=== PATIENT | male | born 1965 | race Caucasian/White ===

== ENCOUNTER 2018-10-13 18:34 | Emergency (ER) | payer BC, MEDICAID ==
[~2018-10-13] VITALS: Ht 172.7 cm; Wt 74.8 kg
[2018-10-13 18:41] VITALS: BP 240/103
[2018-10-13] MEDS ORDERED: CEPH-572 PO (18:53)
== END 2018-10-13 19:06 | disposition home or self-care (01) ==
LOC: ER 18:35
DX: S01.502A Unspecified open wound of oral cavity, initial encounter (principal); J34.0 Abscess, furuncle and carbuncle of nose; J02.9 Acute pharyngitis, unspecified; I10 Essential (primary) hypertension; Z91.14 Patient's other noncompliance with medication regimen; Z79.899 Other long term (current) drug therapy; X58.XXXA Exposure to other specified factors, initial encounter; Y93.89 Activity, other specified; Y92.89 Other specified places as the place of occurrence of the external cause; Y99.8 Other external cause status
CPT/HCPCS: 99283

== ENCOUNTER 2023-10-18 14:18 | Outpatient (CLI) | payer MEDICAID | END 2023-10-18 23:59 | disposition home or self-care (01) | LOC: RAD 14:18 | PROVIDERS: ATTEND Nurse Practitioner Family | DX: K74.60 Unspecified cirrhosis of liver (principal) | CPT/HCPCS: 76700 ==

== ENCOUNTER 2024-10-21 11:04 | Inpatient (IN) | payer MEDICAID ==
[~2024-10-21] VITALS: Ht 170.2 cm; Wt 99.8 kg
[2024-10-21] VITALS (9 sets, daily range): BP systolic 128–152; BP diastolic 86–93; PULSE 72–94; RESP 16–28; TEMP 97.6–97.9; O2SAT 96–100
--- NOTE | 2024-10-21 11:17 | ELECTROCARDIOGRAPH REPORT ---
[facility] Test Date: 2024-10-21 Test Time: 11:11:42 Pat Name: KATIA BOYLE Department: EMERGENCY ROOM Room: [place] [address] Gender: M Home Care Physical Therapist: : 1965 Requested By: HARPAL JACOB Order Number: [id number] Reading MD: Dr. Yvan Pastrana Measurements Intervals [place] Rate: 93 P: 15 [place]: 178 QRS: -1 QRSD: 124 T: 136 QT: 443 QTc: 552 Interpretive Statements Sinus rhythm Multiple premature complexes, vent & supraven LVH with secondary repolarization abnormality Borderline prolonged QT interval Electronically Signed On 10-21-2024 15:47:[address] Yvan Pastrana Please click the below link to view image of tracing.
--- NOTE | 2024-10-21 11:47 | RADIOLOGY REPORT ---
EXAM: DI CHEST,SINGLE VIEW HISTORY: CP COMPARISON: None TECHNIQUE: Portable AP view of the chest was performed. FINDINGS: No no pneumothorax or consolidative infiltrates. There is mild central interstitial prominence, slig htly greater on the right.. There is blunting of the left costophrenic angle. The heart is enlarged. IMPRESSION: 1. Cardiomegaly and mild central interstitial prominence which may be due to mild CHF or reactive air ways disease. 2. Probable small left pleural effusion.
[2024-10-21 11:50] LABS: BASOPHILS # (AUTO) 0.1 X10'3 (0-0.2); EOSINOPHILS # (AUTO) 0.1 X10'3 (0-0.9); EOSINOPHILS % (AUTO) 0.6 % (0-6); HEMATOCRIT 45.9 % (42.0-52.0); HEMOGLOBIN 15.2 g/dl (14.0-17.9); LYMPHOCYTES # (AUTO) 1.8 X10'3 (1.1-4.8); LYMPHOCYTES % (AUTO) 13.7 % (21-51); MEAN CORPUSCULAR HEMOGLOBIN 29.4 PG (27.0-31.0); MEAN CORPUSCULAR HGB CONC 33.1 g/dL (33.0-36.5); MEAN CORPUSCULAR VOLUME 88.7 FL (78-98); MEAN PLATELET VOLUME 9.5 FL (7.4-10.4); MONOCYTES # (AUTO) 0.8 X10'3 (0-0.9); MONOCYTES % (AUTO) 5.9 % (2-12); NEUTROPHILS # (AUTO) 10.4 X10'3 (1.8-7.7); NEUTROPHILS % (AUTO) 78.8 % (42-75); PLATELET COUNT 211 X10'3 (140-440); RED BLOOD COUNT 5.17 X10'6 (4.70-6.10); RED CELL DISTRIBUTION WIDTH 16.4 % (11.5-14.5); WHITE BLOOD COUNT 13.2 X10'3 (4.5-11.0)
[2024-10-21 12:06] LABS: ALANINE AMINOTRANSFERASE 84 U/L (12-78); ALBUMIN 3.3 G/DL (3.4-5.0); ALKALINE PHOSPHATASE 117 IU/L (46-116); ANION GAP 11 (8-16); ASPARTATE AMINO TRANSFERASE 45 U/L (10-37); BILIRUBIN,TOTAL 0.8 MG/DL (0.1-1.0); BLOOD UREA NITROGEN 32 MG/DL (7-18); BUN/CREATININE RATIO 21.8 (10.0-20.0); CALCIUM 8.7 MG/DL (8.5-10.1); CHLORIDE 107 MMOL/L (99-107); CREATININE 1.47 MG/DL (0.60-1.10); GLUCOSE 119 MG/DL (70-104); POTASSIUM 4.1 MMOL/L (3.5-5.1); SODIUM 142 MMOL/L (135-145); TOTAL CARBON DIOXIDE 23.7 MMOL/L (24-32); TOTAL PROTEIN 6.6 G/DL (6.4-8.2); eCRCL 52 ML/MIN; eGFR 49 ML/MIN
[2024-10-21] MEDS: furosemide 40mg/4ml inj IV ONE (12:08)
[2024-10-21] MEDS: furosemide 10 MG/1 ML 10ml inj IV ONE (12:08)
[2024-10-21 12:14] LABS: PRO BRAIN NATRIURETIC PEPTIDE 13052 PG/ML (0-125)
[2024-10-21 12:18] LABS: ANISOCYTOSIS 1+; LARGE PLATELETS FEW; PLATELET ESTIMATE NORMAL
--- NOTE | 2024-10-21 12:22 | Physician Documentation ---
History of Present Illness ~ Chief Complaint: Shortness of Breath Stated Complaint: DIFF BREATHING X1 WEEK/HEART FAILURE Time Seen by MD: 11:45 Primary Medical Doctor: DIXON Source: patient Mode of Arrival: POV HPI 59-year-old male with a history of congestive heart failure and liver cirrhosis who states for the past 10 days he has been come increasingly short of breath. You complains of dyspnea on exertion and orthopnea. He denies swelling of the lower extremities. He is not complaining of chest pain. He denies cold or flu symptoms. The patient is not a very good historian in his not sure what medications he is on. He does not think he takes a water pill. Medication Reconciliation Allergies: Uncoded Allergies: PCN (Allergy, Severe, 06/05/16) Past Medical History Past Medical History: Hypertension Past Surgical History: no surgical history Drug Use: none Lives with: Spouse Lives In: Home Occupation: employed Physical Exam Vital Signs: Temperature: 97.1, Heart Rate: 55, Respiratory Rate: 27, BP: 122/102, Pulse Oximetry: 100, Weight: 93.100 Pulse Oximetry Reflects: adequate oxygenation General Appearance: alert, WD/WN EENT: normal ENT inspection Respiratory No accessory muscle use or retractions. The patient does have decreased air movement throughout with wheezes throughout and rales in the left were help with the lungs. Cardiovascular No rubs, gallops or murmurs. No peripheral edema, cyanosis or clubbing of the extremities. Skin: normal color, warm/dry Progress Results/Orders Results/Orders Orders - KOBE ZAMARRIPA [place] Hospitalist (10/21/24 13:31) Completed Orders - KOBE ZAMARRIPA Furosemide Inj (Lasix Inj) (10/21/24 11:45) Furosemide 40mg Inj (Lasix Inj) (10/21/24 11:50) Ipratropium/Albuterol Nebule (Ipratrop/A (10/21/24 12:15) Nitroglycerin Top Ointment (Nitro-Bid Ud (10/21/24 12:15) Medications Received in ER Medications (Trade) Dose Ordered Sig/Diya Route PRN Reason Start Time Stop Time Status Last Admin Dose Admin (Lasix inj) 80 mg ONCE ONCE IV 10/21/24 11:45 10/21/24 11:46 DC 10/21/24 12:08 80 MG (ipratrop/ albuterol 0.5-3(2.5) MG/3ml nebule) 3 ml ONCE ONCE NEB 10/21/24 12:15 10/21/24 12:18 DC 10/21/24 13:13 3 ML (Nitro-BID UD ointment) 1 inch ONCE ONCE TP 10/21/24 12:15 10/21/24 12:18 DC 10/21/24 12:59 1 INCH Vital Signs 10/21/24 10/21/24 10/21/24 10/21/24 11:12 11:41 13:14 13:15 Temp 97.1 Pulse 55 79 77 Resp 22 27 16 18 B/P (MAP) 122/102 168/117 (134) Pulse Ox 100 98 98 O2 Delivery Room Air* O2 Flow Rate 0 0 FiO2 21 10/21/24 13:20 Pulse 80 Resp 17 Pulse Ox 97 O2 Delivery Room Air* O2 Flow Rate 0 FiO2 21 Laboratory Tests Test 10/21/24 11:25 10/21/24 13:01 White Blood Count 13.2 H Red Blood Count 5.17 Hemoglobin 15.2 Hematocrit 45.9 Mean Corpuscular Volume 88.7 Mean Corpuscular Hemoglobin 29.4 Mean Corpuscular Hemoglobin Concent 33.1 Red Cell Distribution Width 16.4 H Platelet Count 211 Mean Platelet Volume 9.5 Neutrophils (%) (Auto) 78.8 H Lymphocytes (%) (Auto) 13.7 L Monocytes (%) (Auto) 5.9 Eosinophils (%) (Auto) 0.6 Basophils (%) (Auto) 1.0 Neutrophils # (Auto) 10.4 H Lymphocytes # (Auto) 1.8 Monocytes # (Auto) 0.8 Eosinophils # (Auto) 0.1 Basophils # (Auto) 0.1 CBC Comment Platelet Estimate Normal Large Platelets Few Red Blood Cell Morphology Perf Basophilic Stippling Anisocytosis 1+ Sodium Level 142 Potassium Level 4.1 Chloride Level 107 Carbon Dioxide Level 23.7 L Anion Gap 11 Blood Urea Nitrogen 32 H Creatinine 1.47 H Estimated GFR/1.73 m2 49 BUN/Creatinine Ratio 21.8 H Glucose Level 119 H Calcium Level 8.7 Total Bilirubin 0.8 Aspartate Amino Transf (AST/SGOT) 45 H Alanine Aminotransferase (ALT/SGPT) 84 H Alkaline Phosphatase 117 H Troponin I High Sensitivity 69 71 Pro-B-Type Natriuretic Peptide 04430 H Total Protein 6.6 Albumin 3.3 L Globulin 3.3 Albumin/Globulin Ratio 1.0 L Chemistry Comments Troponin I High Sens Percent Delta 2 Troponin I Hi Sens Absolute Change 2 EKG/XRAY/CT/US/VASC/MRI EKG : Intepreting Monitor?: No Additional Comment Twelve lead EKG was interpreted by me: Sinus rhythm rate of 93. Multiple katty ature complexes Chest X-Ray : Interpreted By: self Views: 1 VIEW Additional Comments Chest x-ray one view as interpreted by me: Cardiomegaly. Pulmonary vascular congestion. Trace left pleural effusion. Soft tissues unremarkable. Medical Decision Making Findings [place] [address] and chest x-ray shows pulmonary vascular congestion with small left pleural effusion cardiomegaly. The patient it was very tight and has rales in the lower lobes it was well as wheezes throughout. I gave the patient a DuoNeb breathing treatment, 80 mg IV of Lasix and an inch of nitro paste to increase left ventricular function however he was still quite short of breath and I believe he needs to be admitted to the hospital for further diuresis, echocardiogram and Cardiology evaluation. A page has been placed to the on-call hospitalist for admission. I spoke with the hospitalist resident and the patient will be admitted to Medicine. Additional Infomation CHF exacerbation. Pleural effusion. Fluid retention. Orthopnea. Dyspnea on exertion. Departure Disposition: ADMITTED INPATIENT Admission Level of Care: Med/Surg with Tele Impression: Primary Impression: CHF exacerbation Condition: Stable Referrals: NO PRIMARY CARE PROVIDER (PCP) Signature Scribe Signature: No scribe Attestation: The note accurately reflects work and decisions made by me.Kobe DOMINGUEZ 10/21/24 14:11 KOBE ZAMARRIPA October 21, 2024 12:21
[2024-10-21] MEDS: nitroGLYCERIN 1gm ointment UD TP ONE (12:59)
[2024-10-21] MEDS: ipratropium/albuterol 3ml nebule NEB ONE (13:13)
[2024-10-21] MEDS: PERFLUTREN PROTEIN-A MICROSPHR (Optison) 0.22 MG/ML 3ML VIAL IV ONE (14:40)
[2024-10-21] MEDS ORDERED: morphine 2 MG/ML inj. syringe IV PRN (17:35)
[2024-10-21] MEDS ORDERED: ondansetron/PF 4mg/2ml inj IV PRN (17:35)
[2024-10-21] MEDS ORDERED: magnesium Cl slow-release 64mg tablet PO PRN (17:35)
[2024-10-21] MEDS ORDERED: potassium Cl 20 mEq SR tablet PO PRN ×2 (17:35)
[2024-10-21] MEDS ORDERED: magnesium hydroxide 30ml (MOM) UD suspension PO PRN (17:35)
[2024-10-21] MEDS ORDERED: acetaminophen 325mg tablet PO PRN (17:35)
[2024-10-21] MEDS ORDERED: mag hydrox/Alum hydrox/simeth 30ml oral suspension PO PRN (17:35)
[2024-10-21] MEDS ORDERED: potassium Cl 40MEQ/1/2NS 520ml 520 ML IV PRN (17:35)
[2024-10-21] MEDS ORDERED: magnesium sulf-water 4G/100mL 100 ML IV PRN (17:35)
[2024-10-21] MEDS ORDERED: magnesium sulf-water 2g/50mL 50 ML IV PRN (17:35)
--- NOTE | 2024-10-21 17:52 | HISTORY AND PHYSICAL-Residence ---
History & Physical Providers to CC Resident Creating Document: MONIKA CASTILLO, RES CC: YEMI BRISENO MD ~ History of Present Illness Primary Medical Doctor: [facility] Reason for Admit\Complaint: Shortness of breaths since 10 days History of Present Illness 59-year-old male with past medical history of HTN, heart failure with reduced ejection fraction presented to the ED with gradual worsening of shortness of breaths over a period of 10 days. Patient describes that there was mild discomfort 10 days ago that worsened to the point that this shortness of breath even at rest. Patient endorses orthopnea, chest discomfort and paroxysmal nocturnal dyspnea. Patient denies fever, cough, palpitations, swelling of feet or decreased urine output. Patient endorses similar episodes in the past when he was treated for heart failure with reduced ejection fraction. Patient states that he ran out of medications and the prescription was not filled and therefore has not been able to take his meds. Allergies: Uncoded Allergies: PCN (Allergy, Severe, 06/05/16) Home Medications Home Medications Active Past Medical History Past Medical History Heart failure with reduced ejection fraction Hypertension Hyperlipidemia Does not know if he has a diagnosis of liver cirrhosis Past Surgical History Surgical History Comment ACL repair (right) Past Social History Social History Comment Lives at home with mother and ex- Employed as [employer] worker Goes to [facility] for primary care and sees box strapper on [address] Occasional consumption of about five beers at parties Used to smoke half pack of cigarettes for 20 years came down to 2-3 per day for the last four years Smokes marijuana Does not consume any other illicit drugs Drug Use: None Lives with: Spouse Lives In: Home Occupation: employed ROS ROS All other systems reviewed in full and negative except for the pertinent positives mentioned in the HPI Exam Vitals: Vital Signs Date Time Temp Pulse Resp B/P (MAP) Pulse Ox O2 Delivery O2 Flow Rate FiO2 10/21/24 16:06 79 10/21/24 14:22 17 145/98 (114) 100 2.0 10/21/24 13:20 Room Air* 21 10/21/24 11:12 97.1 General: General: Moderately obese man, Alert, awake, oriented,in acute distress HEENT: PERRLA, no icterus, pallor, lymphadenopathy, carotid bruit Respiratory system: Bilateral vesicular breath sounds heard, expiratory wheeze heard in bilateral lung regions, bilateral basal Creps heard CVS: S1-S2 heard, 3/6 holosystolic murmur present in the mitral and tricuspid area GI: Soft, nontender, no organomegaly, no guarding/rigidity, bowel sounds present Neuro: No focal neurological deficits present Extremities: 1+ pitting edema present bilaterally, No cyanosis clubbing Musculoskeletal: No deformities Skin: Warm and dry Mood: Anxious Diagnostic Data Last Recorded Lab Results: 10/21/24 1125 10/21/24 1125 Advance Care Planning Advanced Care plannin - 30 Minutes (I spent 20 minutes discussing various resuscitative measures the patient decided to be full code) Additional Plan Assessment: A 50-year-old male with past medical history of heart failure with reduced ejection fraction presented to the ED with gradual worsening of shortness of breaths over a period of 10 days. Patient was admitted for the management and evaluation of acute exacerbation of heart failure with reduced ejection fraction, possible underlying undiagnosed COPD and possible obstructive sleep apnea. Plan: Acute respiratory distress 2/2 acute on chronic exacerbation of HFrEF, EF: 30% Cor pulmonale Possible underlying undiagnosed COPD Possible obstructive sleep apnea Mild leukocytosis with left shift Chest x-ray: Cardiomegaly and mild central interstitial prominence which may be due to mild CHF or reactive airways disease. Probable small left pleural effusion. Echo: LV is mildly dilated with mild concentric hypertrophy. Overall systolic function appears severely reduced with no evidence of thrombus visualized. Global hypokinesis. LVEF is 30%.RV appears mildly dilated with normal contractility. RVSP is estimated at 56 mmHG. EKG: Sinus rhythm, RBBB with left axis deviation. Elevated pro BN Optimization with GDM T: Losartan 50 mg, metoprolol succinate 25 mg, Aldactone 25 mg, Jardiance 10 mg IV Lasix 40 mg b.i.d. IV ceftriaxone 1 g (day one), IV azithromycin 500 mg (day one), IV methylprednisolone 60 mg b.i.d. DuoNeb q.4h scheduled, q.2h p.r.n. Follow up with D-dimer CPAP daily at night Daily weights, strict Is&Os Heart healthy diet Severe mitral regurgitation Echo: MV is thickened with mild annular thickening and no stenosis. Severe mitral regurgitation with flow reversal in pulmonary vein. Patient might benefit from Cardiology consult and discussion about valve replacement. Prerenal JERMAN probably secondary to renal tubular stasis Most likely cardiorenal Elevated BUN and creatinine Continue to monitor BMP Follow up with urine lytes and FENa Hypertension Continue losartan 50 mg once daily We will continue to monitor vitals Hyperlipidemia Follow up with lipid panel Continue Lipitor 40 mg once daily Unclear diagnosis of liver cirrhosis Elevated liver enzymes Follow up with ultrasound abdomen Code status: Full code Diet: Heart healthy, sodium restricted DVT prophylaxis: Heparin Disposition: Admit to PCU, strict Is&Os, monitor for any respiratory distress, follow up with D-dimer and if elevated recommend CT angiography Monika Castillo MD Internal Medicine, PGY 1 Date of Service: October 21, 2024 Billing Provider: YEMI BRISENO MD,MONIKA, RES October 21, 2024 17:52
[2024-10-21] MEDS ORDERED: SPIR25TA5 PO (17:57)
[2024-10-21] MEDS ORDERED: LOSA25TA41 PO (17:57)
[2024-10-21] MEDS ORDERED: FURO40TA4 PO (17:57)
[2024-10-21] MEDS ORDERED: METO-384 PO (17:57)
[2024-10-21] MEDS ORDERED: ipratropium/albuterol 3ml nebule NEB PRN (18:00)
--- NOTE | 2024-10-21 18:01 | CARDIOLOGY REPORT ---
APPROVED REPORT EXAM: Comprehensive 2D, Doppler, and color-flow Echocardiogram. Patient Location: [facility] Blood Pressure: 145/98 mmHg Heart Rate: 80-100 bpm Rhythm: Sinus with frequent ectopy Indications CHF SOB Hypertension Pro BNP 36862 Dandy Operator unknown No previous echo 2D Dimensions LA Diam5.8 cm IVSd 1.3 (0.7-1.1cm) LVDd 6.0 cm PWd 1.3 (0.7-1.1cm) IVSs 1.5 (0.8-1.2cm) LVDs 5.3 (2.5-4.0cm) Aortic Root(2D) 3.2 cm PWs 1.5 (0.8-1.2cm) LVOT Diameter 2.05 (1.8-2.4cm) LVEF(%) 23.6 (>50%) Ao Asc Diam.3.37 cmIVC 19.76 mm FS (%) 11.1 % SV 42.1 ml CO 4.0 L/min M-Mode Dimensions MV EPSS 1.9 (<0.5cm) Aortic Valve AoV Peak Osmin. 145.8 cm/s AoV VTI 21.2 cm AO Peak GR. 8.5 mmHg AO Mean GR. 5 mmHg LVOT VTI 25.30 cm LVOT Peak Osmin. 149.7 cm/s MONSE(VTI)/BSA 3.96 cm2/m2 MONSE (VTI) 3.96 cm2 Mitral Valve MV E Velocity 160.2 cm/s MV Peak Gr. 14 mmHg MV DECEL TIME 128 ms MV PHT 48 ms MVA (PHT) 4.58 cm2 MR SEnc154.6 cm/s MV WJfn007.0 cm/sMR PG Brk123.5 mmHg Tricuspid Valve TR P. Velocity 339 cm/s RAP ESTIMATE 10 mmHg TR Peak Gr. 46 mmHg RVSP 56 mmHg LEFT VENTRICLE LV is mildly dilated with mild concentric hypertrophy. Overall systolic function appears severely red uced with no evidence of thrombus visualized. Global hypokinesis. LVEF is 30%. RIGHT VENTRICLE RV appears mildly dilated with normal contractility. RVSP is estimated at 56 mmHG. ATRIA Left atrium is severely dilated. AORTIC VALVE Trileaflet AV appears sclerotic without stenosis. No insufficiency. MITRAL VALVE MV is thickened with mild annular thickening and no stenosis. Severe mitral regurgitation with flow r eversal in pulmonary vein. TRICUSPID VALVE The tricuspid valve is normal in structure. Mild tricuspid regurgitation PULMONIC VALVE The pulmonary valve is normal in structure. Trace pulmonic regurgitation. GREAT VESSELS The aortic root is normal in size. The ascending aorta is normal in size. The IVC is normal in size a nd collapses >50% with inspiration. PERICARDIUM There is no pericardial effusion. Other Information Study Quality: Adequate
[2024-10-21 18:11] LABS: HEMOGLOBIN A1C 5.9 % (4.5-6.2)
[2024-10-21 19:43] LABS: POTASSIUM 4.3 MMOL/L (3.5-5.1); eCRCL 45 ML/MIN; eGFR 41 ML/MIN
[2024-10-21 19:45] LABS: D-DIMER 2.21 MG/L FEU (0-0.50)
[2024-10-21 19:50] LABS: OSMOLALITY 300 MOSM/K (280-300)
[2024-10-21] MEDS: K and/or MAG REPLACEMENT MC SCH (20:00)
[2024-10-21] MEDS ORDERED: methylPREDNISolone sod succ 125mg/2ml vial IV SCH (20:00)
[2024-10-21] MEDS: docusate sod 100mg capsule PO SCH (20:00)
[2024-10-21] MEDS: EMPAGLIFLOZIN 10 MG TABLET PO SCH (20:03)
[2024-10-21] MEDS: metoprolol succinate 25mg (24-HOUR) SR. Tablet PO SCH (20:03)
[2024-10-21] MEDS: losartan 25mg tablet PO SCH (20:03)
[2024-10-21] MEDS: methylPREDNISolone sod succ/PF 40mg inj. IV SCH (20:05)
[2024-10-21] MEDS: atorvastatin 20mg tablet PO SCH (20:05)
[2024-10-21] MEDS: LORazepam 1 MG tablet PO PRN (20:06)
[2024-10-21] MEDS: heparin, porcine 5000 units/ml vial SQ SCH (20:18)
[2024-10-21] MEDS: ipratropium/albuterol 3ml nebule NEB SCH (20:24)
[2024-10-21] MEDS: furosemide 40mg/4ml inj IV SCH (22:53)
[2024-10-21 23:11] LABS: BILIRUBIN,URINE NEGATIVE (Neg); CLARITY,URINE CLEAR (Clear); COLOR,URINE YELLOW (Yellow); GLUCOSE, URINE >=1000 mg/dl (Neg); KETONES,URINE NEGATIVE (Neg); LEUKOCYTE ESTERASE ,URINE NEGATIVE (Neg); NITRITES, URINE NEGATIVE (Neg); OCCULT BLOOD,URINE NEGATIVE (Neg); PROTEIN,URINE 30 mg/dl (Neg); UROBILINOGEN,URINE 0.2 E.U/dL (0.2-1.0)
[2024-10-21 23:15] LABS: UA COLLECTION TYPE CLN CATCH MIDSTREAM
[2024-10-21 23:17] LABS: BACTERIA,URINE NONE SEEN /HPF (Neg); RBC,URINE NONE SEEN /HPF (0-2); SQUAMOUS EPITHELIAL CELL,UR NONE SEEN /LPF (FEW); WBC,URINE NONE SEEN /HPF (0-4)
[2024-10-22] VITALS (16 sets, daily range): BP systolic 110–159; BP diastolic 64–98; PULSE 40–106; RESP 16–26; TEMP 97.2–97.9; O2SAT 91–99
[2024-10-22 05:35] LABS: BASOPHILS % (AUTO) 0.3 % (0-1); EOSINOPHILS % (AUTO) 0.1 % (0-6); HEMATOCRIT 48.7 % (42.0-52.0); HEMOGLOBIN 16.3 g/dl (14.0-17.9); LYMPHOCYTES # (AUTO) 0.7 X10'3 (1.1-4.8); LYMPHOCYTES % (AUTO) 10.3 % (21-51); MEAN CORPUSCULAR HEMOGLOBIN 29.4 PG (27.0-31.0); MEAN CORPUSCULAR HGB CONC 33.4 g/dL (33.0-36.5); MEAN PLATELET VOLUME 9.6 FL (7.4-10.4); MONOCYTES # (AUTO) 0.1 X10'3 (0-0.9); MONOCYTES % (AUTO) 1.2 % (2-12); NEUTROPHILS # (AUTO) 6.3 X10'3 (1.8-7.7); NEUTROPHILS % (AUTO) 88.1 % (42-75); PLATELET COUNT 224 X10'3 (140-440); RED BLOOD COUNT 5.53 X10'6 (4.70-6.10); RED CELL DISTRIBUTION WIDTH 16.1 % (11.5-14.5); WHITE BLOOD COUNT 7.2 X10'3 (4.5-11.0)
[2024-10-22 05:56] LABS: ALBUMIN 3.5 G/DL (3.4-5.0); ANION GAP 10 (8-16); BLOOD UREA NITROGEN 30 MG/DL (7-18); BUN/CREATININE RATIO 18.2 (10.0-20.0); CALCIUM 9.3 MG/DL (8.5-10.1); CHLORIDE 106 MMOL/L (99-107); CHOLESTEROL 174 MG/DL (0-200); CREATININE 1.65 MG/DL (0.60-1.10); GLUCOSE 143 MG/DL (70-104); HDL CHOLESTEROL 43 MG/DL (35-60); LDL CHOLESTEROL 119 MG/DL (50-100); MAGNESIUM 2.4 MG/DL (1.5-2.4); POTASSIUM 3.9 MMOL/L (3.5-5.1); PRO BRAIN NATRIURETIC PEPTIDE 8343 PG/ML (0-125); SODIUM 144 MMOL/L (135-145); TOTAL CARBON DIOXIDE 28.1 MMOL/L (24-32); TRIGLYCERIDES 56 MG/DL (20-135); eCRCL 47 ML/MIN; eGFR 43 ML/MIN
[2024-10-22] MEDS ORDERED: spironolactone 25 MG tablet PO SCH (08:00)
[2024-10-22] MEDS: CefTRIAXone/D5W-Rocephin 1gm 50 ML IV SCH (08:27)
[2024-10-22] MEDS: losartan 25mg tablet PO SCH (08:38)
[2024-10-22] MEDS: furosemide 40mg/4ml inj IV SCH (08:40)
[2024-10-22] MEDS ORDERED: iohexol 350MG/ML 100ml bottle IV ONE (08:58)
[2024-10-22] MEDS: azithromycin/NS 500mg/250ml 250 ML IV SCH (09:10)
--- NOTE | 2024-10-22 11:28 | RADIOLOGY REPORT ---
CTA Chest with intravenous contrast INDICATION: elevated D dimer COMPARISON: None TECHNIQUE: Multidetector spiral CTA of the chest was performed of the chest with intravenous contrast . PULMONARY ANGIOGRAPHY PROTOCOL was utilized using a bolus-tracking technique centered on the main p ulmonary artery. Axial, coronal and sagittal multiplanar and MIP reformats were performed. CONTRAST: Type of contrast: Omni 350 Contrast injected: 100 ml Radiation dose : Chest: CTDI volume is 31 mGy. Dose-length product is 953 mGy*cm The dose indicators for CT are the volume computed Tomography (CT) dose Index (CTDIvol) and the dose Length product (DLP), and are measured in units of mGy and mGy-cm, respectively. These indicators are not patient dose, but values generated from the CT scanner acquisition factors. The report includes radiation exposure data for exposures received during this examination. Findings: Pulmonary artery: No pulmonary embolism Lower neck: Normal thyroid. Lungs: Bibasilar atelectasis and consolidation. Emphysematous changes in both lungs. Heart/Vascular Structures: [id number] cardiomegaly. No pericardial effusion. Lymph Nodes: Subcentimeter mediastinal and hilar lymph nodes. Pleura: Small right and trace left pleural effusions. Musculoskeletal: No acute osseous abnormality. Soft tissues: Normal. Upper abdomen: Punctate left renal calculus. IMPRESSION: 1. No pulmonary embolism. 2. Small right and trace left pleural effusions with associated bibasilar atelectasis and consolidati on. Subcentimeter mediastinal and hilar lymph nodes. Clinical correlation and continued follow-up is recommended. HS:Y
[2024-10-22] MEDS: nicotine 21mg patch - 24 hr TD ONE (12:21)
[2024-10-22] MEDS ORDERED: EMPA10TA PO (14:44)
[2024-10-22] MEDS ORDERED: ATOR40TA PO (14:44)
--- NOTE | 2024-10-22 16:26 | RADIOLOGY REPORT ---
INDICATION: Liver cirrhosis TECHNIQUE: Multiple real-time sonographic images were obtained of the right upper quadrant. COMPARISON: US ULTRASOUND OF ABDOMEN on DOS: 10/18/23 FINDINGS: The liver demonstrates diffusely echogenic echotexture without focal mass lesions. The live r measures 14.9 cm. Normal hepatopetal portal flow appreciated. No evidence of pleural effusion or ab dominal ascites. There is no intrahepatic or extrahepatic ductal dilatation. The common duct measures 0.3 cm. The gallbladder is without evidence of stone or sludge. The gallbladder wall measures 0.2 cm and is w ithin normal limits. Negative sonographic Navarrete's sign. The right kidney measures 11.6 cm. The right kidney is normal in contour, size, and shape. The echoge nicity is normal. There is no hydronephrosis. The pancreas is not well visualized due to overlying bowel gas. IMPRESSION: 1. Hepatic steatosis. Otherwise, unremarkable right upper quadrant sonogram.
--- NOTE | 2024-10-22 19:43 | PROGRESS NOTE ---
Daily Progress Note Providers to CC ~ Antibiotic Timeout Antibiotic Ordered?: Yes Subjective The patient is a lot less short of breath- LVEF is 30% on echo- I did speak at length about smoking cessation with the patient Objective Vital Signs Date Time Temp Pulse Resp B/P (MAP) Pulse Ox O2 Delivery O2 Flow Rate FiO2 10/22/24 15:14 42 16 Room Air 0.0 21 10/22/24 15:13 98 10/22/24 15:00 97.4 148/82 (104) Result Diagram: 10/22/24 0506 10/22/24 0506 Gen. No acute distress alert and oriented 4 Lungs clear to ascultation bilaterally, no wheezes rales or rhonchi appreciated Heart normal sinus rhythm no murmurs rubs or clicks noted Abdomen soft nontender bowel sounds are normoactive Lower extremities no clubbing cyanosis, nor edema appreciated bilaterally Coagulation Studies Laboratory Tests Test 10/21/24 19:24 D-Dimer 2.21 MG/L FEU (0-0.50) H D-Dimer Comment Problem\Assessment\Plan Problems/Diagnosis: (1) CHF exacerbation # acute exacerbation of chronic HFrEF- LVEF is 30% on echocardiogram On losartan, Aldactone Jardiance and IV Lasix # COPD possible acute exacerbation Scheduled was DuoNeb IV Rocephin IV Solu-Medrol # severe mitral valve regurgitation- Consider outpatient mitral valve replacement # steatosis of the liver- Abdominal ultrasound two years ago demonstrated cirrhosis of the liver however current ultrasound demonstrates steatosis and no theresa cirrhosis. # hyperlipidemia continue atorvastatin # JERMAN- Possibly present on admission Continue monitor daily CMP Renal function is worsening with diuresis however has stabilized # DVT prophylaxis- SQ heparin Date of Service: October 22, 2024 Billing Provider: SYLWIA GUNDERSON DO Common Visit Codes: [id number] INP/OBS CARE(HIGH) SYLWIA GUNDERSON DO October 22, 2024 19:43
[2024-10-23 02:00] VITALS: BP 107/77; PULSE 83; RESP 21; TEMP 97.8; O2SAT 98
[2024-10-23 07:05] LABS: EOSINOPHILS % (AUTO) 0 % (0-6); HEMATOCRIT 48.1 % (42.0-52.0); MEAN CORPUSCULAR HEMOGLOBIN 29.2 PG (27.0-31.0); MEAN CORPUSCULAR HGB CONC 33.3 g/dL (33.0-36.5); NEUTROPHILS # (AUTO) 14.6 X10'3 (1.8-7.7); WHITE BLOOD COUNT 16.2 X10'3 (4.5-11.0)
[2024-10-23 07:07] LABS: BASOPHILS % (AUTO) 0.3 % (0-1); LYMPHOCYTES % (AUTO) 6.2 % (21-51); MEAN CORPUSCULAR VOLUME 87.7 FL (78-98); MEAN PLATELET VOLUME 9.9 FL (7.4-10.4); MONOCYTES # (AUTO) 0.5 X10'3 (0-0.9); MONOCYTES % (AUTO) 3.4 % (2-12); NEUTROPHILS % (AUTO) 90.1 % (42-75); PLATELET COUNT 235 X10'3 (140-440); RED BLOOD COUNT 5.48 X10'6 (4.70-6.10)
[2024-10-23 07:15] VITALS: BP 127/81; PULSE 81; RESP 24; TEMP 97.1; O2SAT 93
[2024-10-23 07:50] LABS: ALBUMIN 3.2 G/DL (3.4-5.0); ANION GAP 14 (8-16); BLOOD UREA NITROGEN 39 MG/DL (7-18); BUN/CREATININE RATIO 22.3 (10.0-20.0); CALCIUM 9.1 MG/DL (8.5-10.1); CHLORIDE 105 MMOL/L (99-107); CREATININE 1.75 MG/DL (0.60-1.10); GLUCOSE 150 MG/DL (70-104); MAGNESIUM 2.6 MG/DL (1.5-2.4); POTASSIUM 4.4 MMOL/L (3.5-5.1); PRO BRAIN NATRIURETIC PEPTIDE 5217 PG/ML (0-125); SODIUM 142 MMOL/L (135-145); TOTAL CARBON DIOXIDE 23.5 MMOL/L (24-32); eCRCL 42 ML/MIN; eGFR 40 ML/MIN
[2024-10-23] MEDS: nicotine 21mg patch - 24 hr TD SCH (08:00)
[2024-10-23] MEDS ORDERED: spironolactone 25 MG tablet PO SCH (08:00)
[2024-10-23 08:03] VITALS: PULSE 88; RESP 18; O2SAT 98
[2024-10-23 08:10] VITALS: PULSE 80; RESP 18
[2024-10-23] MEDS: metoprolol succinate 25mg (24-HOUR) SR. Tablet PO SCH (08:42)
[2024-10-23] MEDS: HYDROcodone/acetaminophen 5mg/325mg tablet PO PRN (10:26)
[2024-10-23] MEDS ORDERED: ATOR40TA72 PO (10:50)
[2024-10-23] MEDS ORDERED: NICO-687 TD (10:50)
[2024-10-23] MEDS ORDERED: CEFD300C3 PO (10:50)
[2024-10-23] MEDS ORDERED: PRED20TA PO (10:50)
[2024-10-23] MEDS ORDERED: IPRA4AER IH (10:50)
[2024-10-23] MEDS ORDERED: EMPA10TA PO (10:50)
[2024-10-23 13:10] VITALS: BP 110/56; PULSE 52; RESP 16; TEMP 97.4; O2SAT 96
--- NOTE | 2024-10-23 18:03 | DISCHARGE SUMMARY ---
Discharge Summary Providers to CC ~ Discharge Summary Admission Diagnosis: Acute HYpoxemic resp failure, Acute on CHF, Liver Cirrhosis Hospital Course DATE OF ADMISSION: 10/21/2024 DATE OF DISCHARGE: 10/23/2024 Discharge Diagnosis\\Comment: Acute exacerbation of chronic HFrEF, acute COPD, severe mitral valve regurgitation, steatosis of the liver, hyperlipidemia, JERMAN with worsening renal function due to diuresis, severe mitral valve regurgitation Operations\\Procedures: None Consultants: None Complications: None Condition on DC: Stable New Medications: Cefdinir* (Cefdinir*) 300 Mg Capsule 1 CAP PO Q12H, #6 CAP Ipratropium/Albuterol Sulfate (Combivent Respimat Inhal [place]) 20 Mcg-100 Mcg/Actuation Aer.w.adap 2 PUFFS IH Q4H PRN for SOB or wheezing, #1 INH Prednisone* (Prednisone*) 20 Mg Tablet 2 TAB PO DAILY, #9 TAB Take two tablets daily x3 days and then one tablet daily x3 days Atorvastatin Calcium (Atorvastatin Calcium) 40 Mg Tablet 1 TAB PO DAILY for 30 Days, #30 TAB 0 Refills Empagliflozin (Jardiance) 10 Mg Tablet 10 MG PO DAILY, #30 TAB Nicotine 21 MG Patch* (Habitrol 21 MG Patch*) 1 Each Patch.td24 1 PATCH TD DAILY, #30 PATCH Do not smoke while on a nicotine patch as this could cause your blood pressure to markedly elevate and you could have a stroke. Continued Medications: Furosemide (Furosemide) 40 Mg Tablet 1 TAB PO DAILY Losartan Potassium (Losartan Potassium) 25 Mg Tablet 1 TAB PO DAILY Metoprolol Succinate (Metoprolol Succinate) 50 Mg Tab.sr.24h 1 TAB PO DAILY Spironolactone (Spironolactone) 25 Mg Tablet 1 TAB PO DAILY Discharge Summary: The patient was admitted by resident physician MONIKA Whiteside, under the supervision of FELICIANO LINARES with the following HPI:"59-year-old male with past medical history of HTN, heart failure with reduced ejection fraction presented to the ED with gradual worsening of shortness of breaths over a period of 10 days. Patient describes that there was mild discomfort 10 days ago that worsened to the point that this shortness of breath even at rest. Patient endorses orthopnea, chest discomfort and paroxysmal nocturnal dyspnea. Patient denies fever, cough, palpitations, swelling of feet or decreased urine output. Patient endorses similar episodes in the past when he was treated for heart failure with reduced ejection fraction. Patient states that he ran out of medications and the prescription was not filled and therefore has not been able to take his meds." The patient is breathing improved significantly with diuresis with Lasix on board the patient also has a COPD which is acutely diagnose and the patient received IV Solu-Medol and nebulizer treatments. The patient had an echocardiogram which demonstrated mildly dilated mild concentric hypertrophy as well as heart failure with an LVEF of 30% The patient also has severe mitral valve regurgitation and I did inform the pa emily of this fact which may improve with diuresis. The patient also was treated with IV azithromycin and IV Rocephin and and di scharged with a script for cefdinir 300 mg one cap q.12 hours x3 days the patient also received a tapering dose of prednisone 40 mg for three days and then 20 mg for three days. The patient was started on Jardiance and remains on losartan and metoprolol and spironolactone the patient is to continue Lasix 40 mg daily and get a metabolic panel in two weeks to monitor his kidney function the patient was admitted with a JERMAN with a creatinine 1.47 however his kidney function did worsen during hospitalization with diuresis on day discharge his creatinine was 1.75. The patient does have underlining chronic kidney disease. The patient has a history of steatosis of the liver initially two years ago an ultrasound was obtained which was read as cirrhosis however current ultrasound ruled out cirrhosis. Gen. No acute distress alert and oriented 4 Lungs clear to ascultation bilaterally, no wheezes rales or rhonchi appreciated Heart normal sinus rhythm no murmurs rubs or clicks noted Abdomen soft nontender bowel sounds are normoactive Lower extremities no clubbing cyanosis, nor edema appreciated bilaterally The patient felt ready to be discharged and was medically cleared to be discharged on 10/23/2024 The patient was seen and evaluated on day of discharge. Time spent on discharge 40 minutes *Problems/Diagnosis: (1) CHF exacerbation Status: Acute Total Time Spent on D/C: > 30 Minutes Date of Service: October 23, 2024 Billing Provider: SYLWIA GUNDERSON DO Common Visit Codes: [id number] DISCH DAY >30min SYLWIA GUNDERSON DO October 23, 2024 17:55
== END 2024-10-23 13:33 | disposition home or self-care (01) | DRG 194 ==
LOC: ER 11:05 → ED HOLD 14:10 → PCU 3S 15:41
PROVIDERS: ADMIT Family Medicine; ATTEND Family Medicine
PROC: B32T1ZZ Computerized Tomography (CT Scan) of Left Pulmonary Artery using Low Osmolar Contrast (ICD-10-PCS; principal; 2024-10-22)
PROC: B3201ZZ Computerized Tomography (CT Scan) of Thoracic Aorta using Low Osmolar Contrast (ICD-10-PCS; 2024-10-22)
PROC: B32S1ZZ Computerized Tomography (CT Scan) of Right Pulmonary Artery using Low Osmolar Contrast (ICD-10-PCS; 2024-10-22)
DX: I13.0 Hypertensive heart and chronic kidney disease with heart failure and stage 1 through stage 4 chronic kidney disease, or unspecified chronic kidney disease (principal); J96.01 Acute respiratory failure with hypoxia; N17.9 Acute kidney failure, unspecified; K74.60 Unspecified cirrhosis of liver; I50.23 Acute on chronic systolic (congestive) heart failure; J44.9 Chronic obstructive pulmonary disease, unspecified; N18.9 Chronic kidney disease, unspecified; I34.0 Nonrheumatic mitral (valve) insufficiency; Z88.0 Allergy status to penicillin
CPT/HCPCS: 36415; 71045; 71275; 76700; 80048; 80053; 80061; 81001; 82565; 82570; 83036; 83735; 83880; 83930; 83935; 84132; 84300; 84484; 85008; 85025; 85379; 87081; 93005; 93306; 94640; 94760; 96374; 96375; 99285; A4615; A6258; G0378; J0456; J0696; J1644; J1938; J1940; J2919; Q9967

== ENCOUNTER 2024-10-27 10:23 | Inpatient (IN) | payer MEDICAID ==
[~2024-10-27] VITALS: Ht 172.7 cm; Wt 91.5 kg
[~2024-10-27 10:23] MED LIST: ATOR40TA72 PO; CEFD300C3 PO; EMPA10TA PO; FURO40TA4 PO; IPRA4AER IH; LOSA25TA41 PO; METO-384 PO; NICO-687 TD; PRED20TA PO; SPIR25TA5 PO
--- NOTE | 2024-10-27 10:48 | ELECTROCARDIOGRAPH REPORT ---
[facility] Test Date: 2024-10-27 Test Time: 10:29:41 Pat Name: KATIA BOYLE Department: EMERGENCY ROOM Room: Gender: M General Internal Medicine Physician: NELSON : 1965 Requested By: DEPARTMENT EMERGENCY Order Number: [id number] Reading MD: Measurements Intervals [place] Rate: 95 P: 56 [place]: 171 QRS: 76 QRSD: 126 T: 75 QT: 394 QTc: 496 Interpretive Statements Sinus rhythm Ventricular bigeminy Consider left atrial enlargement Nonspecific intraventricular conduction delay Nonspecific T abnormalities, lateral leads Baseline wander in lead(s) V1 Please click the below link to view image of tracing.
[2024-10-27 11:05] LABS: BASOPHILS # (AUTO) 0.1 X10'3 (0-0.2); HEMOGLOBIN 15.4 g/dl (14.0-17.9); MEAN PLATELET VOLUME 9.6 FL (7.4-10.4); MONOCYTES # (AUTO) 0.9 X10'3 (0-0.9); MONOCYTES % (AUTO) 7.5 % (2-12); NEUTROPHILS # (AUTO) 7.9 X10'3 (1.8-7.7)
[2024-10-27 11:07] LABS: BASOPHILS % (AUTO) 0.8 % (0-1); EOSINOPHILS # (AUTO) 0.3 X10'3 (0-0.9); EOSINOPHILS % (AUTO) 2.3 % (0-6); HEMATOCRIT 47.3 % (42.0-52.0); LYMPHOCYTES # (AUTO) 2.3 X10'3 (1.1-4.8); LYMPHOCYTES % (AUTO) 20.3 % (21-51); MEAN CORPUSCULAR HEMOGLOBIN 29.3 PG (27.0-31.0); MEAN CORPUSCULAR HGB CONC 32.6 g/dL (33.0-36.5); MEAN CORPUSCULAR VOLUME 89.8 FL (78-98); NEUTROPHILS % (AUTO) 69.1 % (42-75); PLATELET COUNT 243 X10'3 (140-440); RED BLOOD COUNT 5.27 X10'6 (4.70-6.10); RED CELL DISTRIBUTION WIDTH 16.7 % (11.5-14.5); WHITE BLOOD COUNT 11.4 X10'3 (4.5-11.0)
[2024-10-27 11:27] LABS: ALANINE AMINOTRANSFERASE 113 U/L (12-78); ALBUMIN/GLOBULIN RATIO 0.8 (1.1-1.5); ALKALINE PHOSPHATASE 122 IU/L (46-116); ANION GAP 6 (8-16); ASPARTATE AMINO TRANSFERASE 55 U/L (10-37); BLOOD UREA NITROGEN 31 MG/DL (7-18); BUN/CREATININE RATIO 17.7 (10.0-20.0); CALCIUM 8.5 MG/DL (8.5-10.1); CHLORIDE 106 MMOL/L (99-107); CREATININE 1.75 MG/DL (0.60-1.10); GLUCOSE 116 MG/DL (70-104); POTASSIUM 4.9 MMOL/L (3.5-5.1); SODIUM 138 MMOL/L (135-145); TOTAL CARBON DIOXIDE 26.2 MMOL/L (24-32); TOTAL PROTEIN 6.8 G/DL (6.4-8.2); eCRCL 44 ML/MIN; eGFR 40 ML/MIN
--- NOTE | 2024-10-27 11:31 | RADIOLOGY REPORT ---
CHEST RADIOGRAPH Indication: CP Technique: Single frontal view of the chest was obtained Comparison: DI CHEST,SINGLE VIEW on DOS: 10/21/24 FINDINGS: The cardiac silhouette is enlarged. The lungs demonstrate patchy airspace opacities. The pulmonary va sculature is prominent. Small left pleural effusion. There is no pneumothorax. IMPRESSION: 1. Cardiomegaly with pulmonary vascular congestion and bilateral patchy airspace opacities. 2. Small left pleural effusion
[2024-10-27 11:35] LABS: ANISOCYTOSIS 1+; GIANT PLATELET FEW; LARGE PLATELETS FEW; PLATELET ESTIMATE NORMAL
[2024-10-27 11:38] LABS: PRO BRAIN NATRIURETIC PEPTIDE 17286 PG/ML (0-125)
[2024-10-27] MEDS: CefTRIAXone 2gm/D5W 50ml BAG 50 ML IV ONE (11:51)
[2024-10-27] MEDS: aspirin 81mg, enteric-coated 1 TAB TABLET.DR PO ONE (13:06)
[2024-10-27] MEDS ORDERED: mag hydrox/Alum hydrox/simeth 30ml oral suspension PO PRN (13:20)
[2024-10-27] MEDS ORDERED: magnesium sulf-water 2g/50mL 50 ML IV PRN (13:20)
[2024-10-27] MEDS ORDERED: potassium Cl 20 mEq SR tablet PO PRN (13:20)
[2024-10-27] MEDS ORDERED: potassium Cl 40MEQ/1/2NS 520ml 520 ML IV PRN (13:20)
[2024-10-27] MEDS ORDERED: magnesium hydroxide 30ml (MOM) UD suspension PO PRN (13:20)
[2024-10-27] MEDS ORDERED: magnesium sulf-water 4G/100mL 100 ML IV PRN (13:20)
[2024-10-27] MEDS ORDERED: magnesium Cl slow-release 64mg tablet PO PRN (13:20)
[2024-10-27] MEDS ORDERED: acetaminophen 325mg tablet PO PRN ×2 (13:20)
[2024-10-27] MEDS ORDERED: ondansetron/PF 4mg/2ml inj IV PRN (13:20)
[2024-10-27] MEDS ORDERED: iohexol 350MG/ML 100ml bottle IV ONE ×2 (13:20→17:54)
[2024-10-27 13:50] LABS: APTT 29 SECONDS (22-32); D-DIMER 1.91 MG/L FEU (0-0.50); INR 1.1 INR; PROTHROMBIN TIME 10.8 SECONDS (9.0-12.0)
[2024-10-27] MEDS: metoprolol succinate 25mg (24-HOUR) SR. Tablet PO SCH (14:00)
[2024-10-27] MEDS: atorvastatin 20mg tablet PO SCH ×2 (14:00→21:51)
--- NOTE | 2024-10-27 14:09 | ELECTROCARDIOGRAPH REPORT ---
[facility] Test Date: 2024-10-27 Test Time: 14:07:13 Pat Name: KATIA BOYLE Department: EMERGENCY ROOM Room: ED 1 1 Gender: M Skoog Operator: MIKAELA : 1965 Requested By: YAMILETH SEVILLA Order Number: [id number] Reading MD: Measurements Intervals [place] Rate: 78 P: 17 IN: 176 QRS: 5 QRSD: 123 T: 104 QT: 422 QTc: 481 Interpretive Statements Sinus rhythm Nonspecific intraventricular conduction delay Borderline repolarization abnormality Please click the below link to view image of tracing.
[2024-10-27] MEDS: MESSAGE TO NURSING IV ONE ×2 (14:12→21:13)
[2024-10-27] MEDS: heparin 10,000 units/1 ML INJ IV ONE (14:14)
[2024-10-27] MEDS: heparin 25,000 UNIT/250ml bag 250 ML IV PRN (14:15)
--- NOTE | 2024-10-27 14:21 | HISTORY AND PHYSICAL-Residence ---
History & Physical Providers to CC Resident Creating Document: DAPHNE BROWN RES ~ History of Present Illness Primary Medical Doctor: [facility] Reason for Admit\Complaint: Acute onset shortness of breath History of Present Illness 59-year-old male patient with a past medical history of heart failure with reduced ejection fraction with unknown compliance with medications, hypertension, TRESA and tobacco use disorder presents to the hospital with complaints of progressively worsening shortness of breath. Patient reports that over the last two days he developed increasing dyspnea, orthopnea and PND. Also noticed decrease in level of activity, can not walk even one flight of steps without developing shortness of breath. Occasional episodes of waking up in the middle of the night with gasping for air. He has also been coughing up yellowish sputum over the last two days and symptoms of nasal congestion. He denied presence of any chest pain, diaphoresis, dizziness, or syncopal episode. Denies any abdominal pain, nausea or vomiting. Whom further questioning, he states that about a year ago he was diagnosed with a heart failure with reduced ejection fraction but he has been noncompliant with his medications. He was evaluated [facility] by houseperson that he does not remember the name of. They performed a cardiac catheterization which was negative for CAD. Of note, the patient was recently discharged on the October 23, 2024 after being today with similar complaints of increasing shortness of breath. He was discharged on appropriate GDM T that he reports of taking regularly and as indicated. Allergies: Coded Allergies: Penicillins (Verified Allergy, Unknown, 10/27/24) Home Medications Home Medications Active Cefdinir* (Cefdinir) 300 Mg Capsule 1 Cap PO Q12H Combivent Respimat Inhal [place] (Albuterol/Ipratropium) 20 Mcg-100 Mcg/Actuation Aer.w.adap 2 Puffs IH Q4H PRN Prednisone* (Prednisone) 20 Mg Tablet 2 Tab PO DAILY Take two tablets daily x3 days and then one tablet daily x3 days Habitrol 21 MG Patch* (Nicotine) 1 Each Patch.td24 1 Patch TD DAILY Do not smoke while on a nicotine patch as this could cause your blood pressure to markedly elevate and you could have a stroke. Jardiance (Empagliflozin) 10 Mg Tablet 10 Mg PO DAILY Atorvastatin Calcium 40 Mg Tablet 1 Tab PO DAILY 30 Days Reported Metoprolol Succinate 50 Mg Tab.sr.24h 1 Tab PO DAILY Furosemide 40 Mg Tablet 1 Tab PO DAILY Losartan Potassium 25 Mg Tablet 1 Tab PO DAILY Spironolactone 25 Mg Tablet 1 Tab PO DAILY Past Medical History Past Medical History Hypertension, TRESA, heart failure with reduced EF Past Surgical History Surgical History Comment ACL repair of the right knee Past Social History Social History Comment Smokes about five cigarettes per day. Denies any alcohol use. Occasional marijuana consumption. Denies any current illicit drug abuse, last used 20 years ago. Lives at home with his ex-. Works as an [employer] worker. Prior to this, used to work in [employer]. Drug Use: None Lives with: Spouse Lives In: Home Occupation: employed ROS ROS As stated above in the HPI, otherwise all systems are reviewed and negative. Exam Vitals: Vital Signs Date Time Temp Pulse Resp B/P (MAP) Pulse Ox O2 Delivery O2 Flow Rate FiO2 10/27/24 13:10 97.6 79 22 150/63 (92) 99 0 General: General: Awake and Alert, emotional distress HEENT: Conjunctiva pink, Sclera clear, Mucus Membranes moist. Poor dentition Resp: Tachypneic. Diffuse bilateral crackles in fine crepitations present Heart: Irregular rhythm, normal S1 and S2, difficult to evaluate heart sounds Abdomen: Obese, Soft and non tender no organomegaly Extremities: No cyanosis,clubbing or edema. Skin: Warm and Dry. Diagnostic Data Last Recorded Lab Results: 10/27/24 1034 10/27/24 1034 Diagnostic Data: Laboratory Tests Test 10/27/24 10:34 Prothrombin Time 10.8 SECONDS (9.0-12.0) INR International Normalized Ratio 1.1 INR Activated Partial Thromboplast Time 29 SECONDS (22-32) D-Dimer 1.91 MG/L FEU (0-0.50) H D-Dimer Comment Coagulation Comments Counseling Services Smoking & Tobacco Cessation: 3-10 Minutes Advance Care Planning Advanced Care plannin - 30 Minutes Additional Plan 1. Acute exacerbation of HFrEF: POA Severe MR, EF 30%, RVSP 56 mmHg Heart catheterization one year ago ProBNP 37371 Chest x-ray reveals increased pulmonary vascular congestion, mild left-sided pleural effusion IV Lasix 40 mg b.i.d. Fluid restriction to less than 2 L per day. Strict input and output monitoring 2. NSTEMI: EKG with abnormal findings but no ST changes Troponin 6706, continue trending Reconstructive Dentist Dr. Luque consulted Started the patient on heparin drip for ACS Patient to be NPO. Possible heart catheterization 3. Transaminitis: ALT greater than AST Differentials include secondary to heart failure/fatty liver induced We will continue monitoring 4. CKD stage 3: D-dimer elevated to 1.19: We will order a V/Q scan but CTA will be canceled to avoid contrast Heart catheterization possibility; we will start the patient on bicarb drip and Mucomyst Close monitoring of CMP I&O monitoring 5. Mild nonspecific leukocytosis: CTA chest reveals presence of small bilateral basilar infiltrates with left- sided pleural effusion Chest x-ray at this time also reveals presence of left-sided pleural effusion that is small Follow up procalcitonin He was treated last time with Zithromax and Rocephin, continue to monitor at this time No significant COPD changes noted on the CT chest 6. Morbid obesity: TRESA Elevated RVSP Recommend sleep study Lines: PIV Code status: Full code DVT prophylaxis: Heparin Prognosis: Guarded Diet: NPO for now Daphne Brown PGY2, Internal medicine resident Date of Service: October 27, 2024 Billing Provider: YAMILETH SEVILLA MD Common Visit Codes: 58262-QPWIJCC INP/OBS CARE (HIGH) Secondary Visit Codes: 88560-[id number] CARE PLAN 30 MINUTES DAPHNE BROWN, IRINA October 27, 2024 14:21 YAMILETH SEVILLA MD October 27, 2024 19:16
[2024-10-27] MEDS ORDERED: sodium bicarbonate 1meq/ml inj 150 ML in sodium chloride 0.45% 1,000 ML IV SCH (14:35)
[2024-10-27] MEDS: sodium bicarbonate 1meq/ml inj 150 ML in sodium chloride 0.45% 1,000 ML IV SCH (15:07)
[2024-10-27] MEDS: acetylcysteine 200 MG/ml 4ml vial PO STA (15:45)
[2024-10-27 15:51] LABS: BILIRUBIN,URINE NEGATIVE (Neg); CLARITY,URINE CLEAR (Clear); COLOR,URINE YELLOW (Yellow); GLUCOSE, URINE >=1000 mg/dl (Neg); KETONES,URINE NEGATIVE (Neg); LEUKOCYTE ESTERASE ,URINE NEGATIVE (Neg); NITRITES, URINE NEGATIVE (Neg); OCCULT BLOOD,URINE NEGATIVE (Neg); PROTEIN,URINE 30 mg/dl (Neg); UROBILINOGEN,URINE 0.2 E.U/dL (0.2-1.0)
[2024-10-27 15:56] LABS: URINE AMPHETAMINE SCREEN POSITIVE (Neg); URINE BARBITUATE SCREEN NEGATIVE (Neg); URINE BENZODIAZEPINES SCREEN NEGATIVE (Neg); URINE CANNABINOID SCREEN POSITIVE (Neg); URINE COCAINE SCREEN NEGATIVE (Neg); URINE METHADONE SCREEN NEGATIVE (Neg); URINE OPIATE SCREEN NEGATIVE (Neg); URINE PHENCYCLIDINE SCREEN NEGATIVE (Neg)
[2024-10-27 16:12] LABS: RBC,URINE 0-2 /HPF (0-2); UA COLLECTION TYPE CLN CATCH MIDSTREAM; WBC,URINE 0-4 /HPF (0-4)
[2024-10-27 16:13] LABS: BACTERIA,URINE NONE SEEN /HPF (Neg); FINE GRANULAR CAST 0-3 /LPF (NEGATIVE); HYALINE CASTS 0-3 /LPF (NEGATIVE); SQUAMOUS EPITHELIAL CELL,UR FEW /LPF (FEW)
[2024-10-27] MEDS ORDERED: verapamil 2.5 mg/ml inj IV ONE (17:53)
[2024-10-27] MEDS ORDERED: fentaNYL/PF 50MCG/1 ML 2ML syringe ONE (17:53)
[2024-10-27] MEDS ORDERED: midazolam 1 mg/ML 2ml injection ONE (17:53)
[2024-10-27] MEDS ORDERED: LIDOcaine 1% (10mg/ml) 2ml vial ONE (17:53)
[2024-10-27] MEDS ORDERED: heparin 1,000unit/ml 10ml vial 10 ML ONE (17:54)
[2024-10-27] MEDS ORDERED: nitroGLYCERIN 500mcg/5mL D5W 5 ML IV ONE (17:54)
[2024-10-27] MEDS ORDERED: iohexol 350 MG/ML 50ML vial IV ONE (17:54)
[2024-10-27 18:00] VITALS: BP 128/70; PULSE 62; RESP 26; TEMP 98; O2SAT 98
[2024-10-27] MEDS ORDERED: DOBUTamine-DoBUTrex 500mg/D5W 250 ML IV ONE (19:19)
[2024-10-27 19:50] VITALS: BP 118/94; PULSE 80; RESP 20; TEMP 98.1; O2SAT 99
[2024-10-27 20:00] VITALS: RESP 20; O2SAT 99
[2024-10-27] MEDS: K and/or MAG REPLACEMENT MC SCH (20:00)
[2024-10-27] MEDS ORDERED: heparin, porcine 5000 units/ml vial SQ SCH (20:00)
[2024-10-27] MEDS ORDERED: furosemide 40mg/4ml inj IV SCH (20:00)
[2024-10-27] MEDS: DOBUTamine 2000 MCG/250ML BAG IV SCH (20:15)
[2024-10-27] MEDS: acetylcysteine 200 MG/ml 4ml vial PO SCH (21:49)
[2024-10-27] MEDS: furosemide 20 MG/2 ML vial IV ONE (21:50)
[2024-10-27] MEDS: docusate sod 100mg capsule PO SCH (21:50)
[2024-10-27 22:00] VITALS: BP 131/105; PULSE 92; RESP 14; TEMP 97.9; O2SAT 100
[2024-10-28] VITALS (7 sets, daily range): BP systolic 100–140; BP diastolic 54–94; PULSE 56–100; RESP 16–27; TEMP 96.7–98.1; O2SAT 94–98
[2024-10-28] MEDS: MESSAGE TO NURSING IV ONE ×2 (03:55→11:10)
[2024-10-28] MEDS: heparin 10,000 units/1 ML INJ IV PRN (04:01)
[2024-10-28 06:33] LABS: ISTAT Hct MIX 44 %PCV (42-52); ISTAT O2 SATURATION MIX VENOUS 58 % (60-80); ISTAT SOURCE BLNK
[2024-10-28 06:33] LABS: ISTAT Hct ART 44 %PCV (42-52); ISTAT O2 SATURATION ARTERIAL 95 % (95-98); ISTAT SOURCE BLNK
--- NOTE | 2024-10-28 06:45 | ELECTROCARDIOGRAPH REPORT ---
[facility] Test Date: 2024-10-28 Test Time: 06:41:19 Pat Name: KATIA BOYLE Department: [facility] 3S Patient ID: [id number] Room: [place] [address] A Gender: M Knot Picker Cloth: RADHA : 1965 Requested By: GABRIEL POWELL Order Number: [id number] Reading MD: Dr. Colton Ortiz Measurements Intervals [place] Rate: 113 P: 73 GA: 154 QRS: 5 QRSD: 127 T: 113 QT: 395 QTc: 542 Interpretive Statements Sinus tachycardia Ventricular bigeminy Nonspecific intraventricular conduction delay Nonspecific T abnormalities, lateral leads Electronically Signed On 10-28-2024 8:52:[address] Colton Ortiz Please click the below link to view image of tracing.
--- NOTE | 2024-10-28 06:48 | Physician Documentation ---
History of Present Illness ~ Chief Complaint: Shortness of Breath Stated Complaint: DIFF BREATHING/HEART FAILURE Time Seen by MD: 11:04 Primary Medical Doctor: DIXON Mode of Arrival: POV, Ambulatory HPI 59-year-old male patient with a past medical history of heart failure with reduced ejection fraction with unknown compliance with medications, hypertension, TRESA and tobacco use disorder presents to our ER with complaints of progressively worsening shortness of breath. Patient reports that over the last two days he developed increasing dyspnea and orthopnea. He reports difficulty walking even one flight of steps without developing shortness of breath. Occasional episodes of waking up in the middle of the night with gasping for air. He has also been coughing up yellowish sputum over the last two days and symptoms of nasal congestion. He denied presence of any chest pain, diaphoresis, dizziness, or syncopal episode. Denies any abdominal pain, nausea or vomiting. Medication Reconciliation Allergies: Coded Allergies: Penicillins (Verified Allergy, Unknown, 10/27/24) Scheduled Losartan Potassium (Losartan Potassium), 1 TAB PO DAILY, (Reported) Metoprolol Succinate (Metoprolol Succinate), 1 TAB PO DAILY, (Reported) Scheduled PRN Ipratropium/Albuterol Sulfate (Combivent Respimat Inhal [place]), 2 PUFFS IH Q4H PRN for SOB or wheezing Discontinued Medications Atorvastatin Calcium (Atorvastatin Calcium), 1 TAB PO DAILY Discontinued Reason: patient no longer taking Cefdinir* (Cefdinir*), 1 CAP PO Q12H Discontinued Reason: patient no longer taking Empagliflozin (Jardiance), 10 MG PO DAILY Discontinued Reason: patient no longer taking Furosemide (Furosemide), 1 TAB PO DAILY, (Reported) Discontinued Reason: patient no longer taking Nicotine 21 MG Patch* (Habitrol 21 MG Patch*), 1 PATCH TD DAILY Discontinued Reason: patient no longer taking Prednisone* (Prednisone*), 2 TAB PO DAILY Discontinued Reason: patient no longer taking Spironolactone (Spironolactone), 1 TAB PO DAILY, (Reported) Discontinued Reason: patient no longer taking Past Medical History Past Medical History: Hypertension Past Surgical History: no surgical history Smoking Status: Current every day smoker Drug Use: none Lives with: Spouse Lives In: Home Occupation: employed Review of Systems All Other Systems at this time: Reviewed and Negative Physical Exam Vital Signs: RN Vital Signs have been reviewed: Yes, Temperature: 97.6, Source: Temporal, Heart Rate: 80, Respiratory Rate: 20, BP: 118/73, Pulse Oximetry: 99, Weight: 91.480 Oxygen Flow Rate: 0 Physical Exam HEENT: PERRL, moist oral mucosa, EOMI Pulmonary: No respiratory distress; crackles bilateral bases Cardiac: RRR, no murmur, rub or gallop MSK: no deformity Skin: w/d/i, no rash Neuro: alert, nonfocal Psych: normal affect Progress Results/Orders Results/Orders Completed Orders - ANITHA WYATT MD Ceftriaxone 2gm/D5w 50ml Bag (Rocephin 2 (10/27/24 11:35) Drug Screen, Urine (10/27/24 11:46) Aspirin 81mg, Enteric-Coated (Ecotrin Ta (10/27/24 13:00) Iohexol 350mg/Ml 100ml (Omnipaque 350mg/ (10/27/24 13:20) Ua W/Microscopic, Cult If Ind (10/27/24 15:19) Vital Signs 10/27/24 10/27/24 10/27/24 10/27/24 10:46 11:25 11:36 13:10 Temp 97.6 97.6 97.6 Pulse 95 80 79 Resp 18 24 26 22 B/P (MAP) 158/95 137/77 (97) 150/63 (92) Pulse Ox 100 98 99 O2 Flow Rate 0 0 Laboratory Tests Test 10/27/24 10:34 10/27/24 13:14 White Blood Count 11.4 H Red Blood Count 5.27 Hemoglobin 15.4 Hematocrit 47.3 Mean Corpuscular Volume 89.8 Mean Corpuscular Hemoglobin 29.3 Mean Corpuscular Hemoglobin Concent 32.6 L Red Cell Distribution Width 16.7 H Platelet Count 243 Mean Platelet Volume 9.6 Neutrophils (%) (Auto) 69.1 Lymphocytes (%) (Auto) 20.3 L Monocytes (%) (Auto) 7.5 Eosinophils (%) (Auto) 2.3 Basophils (%) (Auto) 0.8 Neutrophils # (Auto) 7.9 H Lymphocytes # (Auto) 2.3 Monocytes # (Auto) 0.9 Eosinophils # (Auto) 0.3 Basophils # (Auto) 0.1 CBC Comment Platelet Estimate Normal Large Platelets Few Giant Platelets Few Red Blood Cell Morphology Perf Basophilic Stippling Anisocytosis 1+ Prothrombin Time 10.8 INR International Normalized Ratio 1.1 Activated Partial Thromboplast Time 29 D-Dimer 1.91 H D-Dimer Comment Coagulation Comments Sodium Level 138 Potassium Level 4.9 Chloride Level 106 Carbon Dioxide Level 26.2 Anion Gap 6 L Blood Urea Nitrogen 31 H Creatinine 1.75 H Estimated GFR/1.73 m2 40 BUN/Creatinine Ratio 17.7 Glucose Level 116 H Calcium Level 8.5 Total Bilirubin 1.0 Aspartate Amino Transf (AST/SGOT) 55 H Alanine Aminotransferase (ALT/SGPT) 113 H Alkaline Phosphatase 122 H Troponin I High Sensitivity 6707 *H 5133 *H Pro-B-Type Natriuretic Peptide 89022 H Total Protein 6.8 Albumin 3.0 L Globulin 3.8 Albumin/Globulin Ratio 0.8 L Chemistry Comments Troponin I High Sens Percent Delta 23 Troponin I Hi Sens Absolute Change -1574 EKG/XRAY/CT/US/VASC/MRI EKG : Indication: shortness of breath EKG Rate: 95 EKG: NSR, PVC(s), nonspecific ST T wave chg Additional Comment my interpretation: no STEMI criteria, nonspecific interventricular conduction delay, ventricular bigeminy Chest X-Ray : Interpreted By: self Views: 1 VIEW Indication: shortness of breath Lungs: infiltrate, pulmonary edema, effusion Mediastinum: normal Ribs/Bones: normal Abdomen: normal Impression: CHF, pneumonia Medical Decision Making Findings 59 year old male as above. Workup was significant for pulmonary edema, elevated troponin, and possible pneumonia. Care transferred to hospitalist and canal structure operator was notified. Antibiotic dose provided but held off on IV fluid bolus given the patient's history of heart failure. Differential Dx:Considerations: Include: anxiety, cardiogenic shock, CHF, COPD, myocardial infarction, pneumonia, pneumonitis, pulmonary embolism, respiratory distress, respiratory failure, upper resp. infection Departure Disposition: ADMITTED INPATIENT Admitted to Inpatient Unit: to hospitalist Admission Level of Care: Med/Surg Impression: Primary Impression: CHF exacerbation Additional Impressions: NSTEMI (non-ST elevated myocardial infarction) Pneumonia Condition: Stable Referrals: NO PRIMARY CARE PROVIDER (PCP) Education Educated: Patient Educated regarding: diagnosis, treatment, prognosis, need for follow up Signature Scribe Signature: . Attestation: . ANITHA WYATT MD October 28, 2024 06:48
[2024-10-28 07:09] LABS: BASOPHILS # (AUTO) 0.1 X10'3 (0-0.2); EOSINOPHILS # (AUTO) 0.2 X10'3 (0-0.9); LYMPHOCYTES # (AUTO) 1.7 X10'3 (1.1-4.8)
[2024-10-28 07:11] LABS: BASOPHILS % (AUTO) 0.9 % (0-1); EOSINOPHILS % (AUTO) 2.2 % (0-6); HEMATOCRIT 41.6 % (42.0-52.0); HEMOGLOBIN 13.8 g/dl (14.0-17.9); LYMPHOCYTES % (AUTO) 19.1 % (21-51); MEAN CORPUSCULAR HEMOGLOBIN 29.3 PG (27.0-31.0); MEAN CORPUSCULAR HGB CONC 33.1 g/dL (33.0-36.5); MEAN CORPUSCULAR VOLUME 88.3 FL (78-98); MEAN PLATELET VOLUME 9.1 FL (7.4-10.4); MONOCYTES # (AUTO) 0.8 X10'3 (0-0.9); MONOCYTES % (AUTO) 8.3 % (2-12); NEUTROPHILS # (AUTO) 6.3 X10'3 (1.8-7.7); NEUTROPHILS % (AUTO) 69.5 % (42-75); PLATELET COUNT 193 X10'3 (140-440); RED BLOOD COUNT 4.71 X10'6 (4.70-6.10); RED CELL DISTRIBUTION WIDTH 16.2 % (11.5-14.5); WHITE BLOOD COUNT 9.1 X10'3 (4.5-11.0)
--- NOTE | 2024-10-28 07:14 | CONSULTATION ---
DATE OF CONSULTATION: 10/27/2024 DICTATING PHYSICIAN: OLIVER Luque MD CARDIOLOGY CONSULTATION REQUESTING PHYSICIAN: ER physician/Dr. Benitez. IDENTIFICATION: A 59-year-old male with increasing shortness of breath and elevated troponin. HISTORY OF PRESENT ILLNESS: The patient is a 59-year-old male with history of hypertension, hyperlipidemia, possible sleep apnea, and COPD with continued smoking and chronic methamphetamine abuse who came in with shortness of breath. The patient was hospitalized from 10/21/2024 to 10/23/2024, admitted with acute chronic heart failure and hospitalized and his CT was negative for pulmonary embolism. He was found to have severe LV systolic ejection of 30% and severe mitral regurgitation and PA systolic 56 mmHg, mild tricuspid regurgitation. He was treated for heart failure and sent home. The patient reappeared in the emergency room on 10/27/2024 at about 10:23 a.m. because of increasing shortness of breath and he was found to have elevated troponin at 6707. He was also positive for methamphetamine. He was treated with aspirin, heparin, and beta-blockers. The patient generally walks around the house, NYHA dyspnea class III and no prior history of myocardial infarction. No history of sustained palpitations or syncopal episodes. No history of congenital rheumatic heart disease. SOCIAL HISTORY: The patient used to be a oxyacetylene welder, stopped working at age 55. He lives with his mother. He does not have any children. His father because of suicide at age 89. Mother is 80 years old. No coronary artery disease. MEDICATIONS AT HOME: He is on metoprolol 50 mg p.o. daily and losartan 25 mg p.o. daily and then spironolactone 25 mg p.o. daily and Lasix 40 mg p.o. daily. PMD: [facility]. PAST MEDICAL HISTORY: * Hypertension. * Hyperlipidemia. * Possible sleep apnea. * COPD with continued tobacco use. * Methamphetamine-induced cardiomyopathy. * Chronic systolic heart failure. * COPD with continued smoking. PAST SURGICAL HISTORY: ACL repair on the right knee. REVIEW OF SYSTEMS: HEENT: Reading glasses, mild impaired hearing. Decreased hearing in the right ear. RESPIRATORY: Exertional shortness of breath. MUSCULOSKELETAL: Arthralgia. CENTRAL NERVOUS SYSTEM: No stroke. PSYCHIATRIC: No anxiety or depression. SKIN: None. ENDOCRINE: None. GASTROINTESTINAL: Has diarrhea. PHYSICAL EXAMINATION: GENERAL: The patient is conscious. No chest pain. Well oriented. VITAL SIGNS: Temperature 97.6, pulse 80 per minute, blood pressure 137/70. NECK: Mild JVD present. Carotids equally well felt. CARDIAC: Regular rate and rhythm. Multiple ectopy. Systolic murmur in the mitral area, increases with expiration. LUNGS: Decreased breath sounds bibasilar and bibasilar crackles. ABDOMEN: Soft. Bowel sounds present. EXTREMITIES: Trace edema. LABORATORY DATA: Labs include sodium 138, potassium 4.9, chloride 106, carbon dioxide 26, BUN 31, creatinine 1.75. Troponins 6707, 5133, 5250. ProBNP of 17,286 and tox screen positive for methamphetamines. WBC 11.4, hemoglobin 15.4, hematocrit 47.3, platelet count 243. DIAGNOSTIC DATA: Chest x-ray shows cardiomegaly with pulmonary congestion, congestive heart failure. ASSESSMENT AND PLAN: * A 59-year-old male with increasing shortness of breath, elevated troponin, decreased ejection fraction. Options for continued medical therapy was further coronary angiography. Risks and benefits and alternative options discussed with the patient. The patient agrees. We will arrange for the same. Continue aspirin, heparin, beta-blockers. * Meth-induced cardiomyopathy. Ejection fraction 30%. Recommend GDMT with metoprolol, losartan, and Farxiga or Jardiance. The patient may not be a good candidate for spironolactone because of his CKD and elevated potassium. * COPD with continued smoking. Counseled on smoking cessation. * Chronic systolic heart failure, 1500 mL of fluid restriction, low-salt diet. Titrate diuretics as required. * Suspected sleep apnea. Recommend sleep study. * Other comorbidities, CKD. With elevated BUN creatinine. He was pretreated with IV bicarbonate infusion and Mucomyst. Abnormal liver function, related to probably dilated cardiomyopathy. OLIVER Luque MD TID: [id number] RECEIPT: [id number] BC/ANAID/AMI cc: YAMILETH SEVILLA MD(User) [facility]
--- NOTE | 2024-10-28 07:26 | CARDIOLOGY REPORT ---
DATE OF SERVICE: 10/27/2024 DICTATING PHYSICIAN: OLIVER Luque MD CARDIAC CATHETERIZATION GENDER: Male. AGE: 59 years. HEIGHT: 172 cm. WEIGHT: 91 kg. BODY SURFACE AREA: 2.04 m2. INDICATION: The patient is a 59-year-old male with history of hypertension, hyperlipidemia, chronic history of smoking. Continues to smoke. Chronic history of methamphetamine abuse. Continues to abuse. Methamphetamine drug screen is positive. Comes with increasing shortness of breath, elevated BNP at 17,000 and troponin which is trending upward at maximum of 6,707. After discussing risks, benefits and alternative options, the patient wishes to proceed with coronary angiography. Risks, benefits, and alternative options discussed and informed consent obtained. PROCEDURE TECHNIQUE: The patient underwent left heart catheterization with right radial approach via 6-Yi right radial sheet. The patient underwent right heart catheterization from right antecubital approach via 6-Yi sheath. Post-procedure access site hemostasis secured with right radial band on the right radial artery and manual compression on the right antecubital vein. The patient tolerated the procedure. PROCEDURES DONE: * Ultrasound-guided right radial artery visualization and access. * Right heart catheterization. * Left heart catheterization. * LVG. * Coronary cineangiography. * Conscious sedation of 45 minutes. FINDINGS: HEMODYNAMICS: Aortic systolic 118 mmHg, diastolic 48 mmHg, mean 115 mmHg. LVEDP of 17 mmHg with no significant gradient across the aortic valve. Right atrial mean 10 mmHg. RV is 73/12 mmHg. PA is 66/17 mmHg. Pulmonary capillary was 16 mmHg. Aortic oxygen saturated 95%. Pulmonary artery oxygen saturation of 58%. Cardiac output by thermodilution is 2.82 L/min. Cardiac index of 1.38 L/min/m2. LEFT VENTRICULOGRAM: Severe LV systolic dysfunction. LV ejection fraction of about 30% to 35%. It is suboptimal because of hand injection secondary to CKD. CORONARY CINEANGIOGRAPHY: Left main coronary artery is a large caliber vessel arising from left main. Left coronary sinus, engaged with JL4 catheter from right radial approach. LAD is a medium caliber vessel arising at the bifurcation of left main coronary artery, courses through the anterior interventricular groove and ends by wrapping around the apex and it also wraps around the apex and supplies distal half of the inferior wall as well. LAD has areas of 30% narrowing in the proximal and mid portion. Diagonal 1 is 2 mm caliber. Diagonal 2 is 2.25 mm caliber with mild luminal irregularities. Circumflex artery is a medium caliber codominant vessel arising at the bifurcation of the left mid coronary artery and has an ostial 30% narrowing. It contains a very small PDA supplementing the wrap around LAD. There are left to right collaterals opacifying the distal posterolateral branch. Right coronary artery is a small caliber vessel less than 2 mm right aortic sinus about 2 mm in diameter. It has a long chronic occlusion with possible collateralization. It looks like it gives rise to a small posterolateral branch. It is also opacified from left to right collaterals. I MPRESSION: A 59-year-old with LV ejection fraction of 30% to 35%. LVEDP of 17 mmHg with no significant gradient across the aortic valve. Pulmonary capillary wedge pressure was 16 mmHg. PA pressure of 66/17 mmHg. Left main normal. Proximal and mid LAD with 30% narrowing. Diagonal with 30% narrowing. The circumflex artery has 30% ostial narrowing and gives rise to a small posterior descending artery. [id number] collateral opacifying distal posterolateral branch coming from RCA. RCA relatively small vessel, long proximal to mid occlusion with ipsilateral as well as contralateral collaterization. In view of his small size of the vessel, small territory and reasonably well-established collaterals, it was decided to treat him conservatively. RECOMMENDATIONS: Recommend cessation of tobacco and alcohol use. Maximize. I will treat the patient with aspirin, Plavix and high-dose statins. Optimization of the GDM T therapy for cardiomyopathy . Patient was extensively counseled on cessation of methamphetamine abuse. His toxicology screen was positive for methamphetamines. OLIVER Luque MD TID: [id number] RECEIPT: [id number] SAMM/ODALYS/SHANTELL MTDGretel
[2024-10-28] MEDS: furosemide 20 MG/2 ML vial IV SCH (07:43)
[2024-10-28] MEDS: aspirin 81mg, enteric-coated 1 TAB TABLET.DR PO SCH (07:44)
[2024-10-28] MEDS: DAPAGLIFLOZIN 10MG TABLET PO SCH (07:45)
[2024-10-28 07:48] LABS: ALANINE AMINOTRANSFERASE 74 U/L (12-78); ALBUMIN 2.4 G/DL (3.4-5.0); ALBUMIN/GLOBULIN RATIO 0.8 (1.1-1.5); ALKALINE PHOSPHATASE 79 IU/L (46-116); ANION GAP 9 (8-16); ASPARTATE AMINO TRANSFERASE 32 U/L (10-37); BILIRUBIN,TOTAL 0.9 MG/DL (0.1-1.0); BLOOD UREA NITROGEN 27 MG/DL (7-18); BUN/CREATININE RATIO 17.6 (10.0-20.0); CALCIUM 8.1 MG/DL (8.5-10.1); CHLORIDE 104 MMOL/L (99-107); CHOL/HDL RATIO 2.5 (0.00-4.99); CHOLESTEROL 86 MG/DL (0-200); CREATININE 1.53 MG/DL (0.60-1.10); GLUCOSE 133 MG/DL (70-104); HDL CHOLESTEROL 35 MG/DL (35-60); LDL CHOLESTEROL 44 MG/DL (50-100); MAGNESIUM 2.2 MG/DL (1.5-2.4); PHOSPHORUS 3.1 MG/DL (2.3-4.5); POTASSIUM 3.4 MMOL/L (3.5-5.1); PRO BRAIN NATRIURETIC PEPTIDE 4283 PG/ML (0-125); SODIUM 138 MMOL/L (135-145); TOTAL CARBON DIOXIDE 25.3 MMOL/L (24-32); TOTAL PROTEIN 5.6 G/DL (6.4-8.2); TRIGLYCERIDES 67 MG/DL (20-135); eCRCL 50 ML/MIN; eGFR 47 ML/MIN
[2024-10-28] MEDS: PERFLUTREN PROTEIN-A MICROSPHR (Optison) 0.22 MG/ML 3ML VIAL IV ONE (08:00)
[2024-10-28] MEDS: potassium Cl 20 mEq SR tablet PO PRN (08:52)
--- NOTE | 2024-10-28 11:54 | PROGRESS NOTE ---
Progress Note Cardiology Providers to CC ~ Subjective Subjective PATIENT SEEN AND EXAMINED THIS MORNING. OVERALL PATIENT IS DOING WELL. HE IS DIURESING WELL WITH IV LASIX AND DOBUTAMINE. Objective Result Diagram: 10/28/24 0610/28/24 06 Objective GENERAL: NORMAL BODY HABITUS, NO ACUTE DISTRESS, HEENT: SCLERAE CLEAR, PERRL, GUMS WITHOUT LESIONS OR BLEEDING, OROPHARYNX CLEAR WITHOUT ERYTHEMA OR EXUDATE. NECK: SUPPLE WITHOUT ENLARGEMENT OF THE THYROID, OR LYMPHADENOPATHY, CHEST: NORMAL SIZE AND SHAPE, NO TENDERNESS, NONLABORED BREATHING, BREATH SOUNDS CLEAR TO AUSCULTATION. HEART: REGULAR IN RATE AND RHYTHM, S1 AND S2 NORMAL, NO S3-S4 OR MURMURS. ABDOMEN: SOFT, NONTENDER, NO ORGANOMEGALY, BOWEL SOUNDS PRESENT. EXTREMITIES: NO EDEMA CYANOSIS OR CLUBBING. Coagulation Studies Laboratory Tests Test 10/27/24 10:34 10/27/24 18:46 10/28/24 10:02 Prothrombin Time 10.8 SECONDS (9.0-12.0) INR International Normalized Ratio 1.1 INR Activated Partial Thromboplast Time 29 SECONDS (22-32) D-Dimer 1.91 MG/L FEU (0-0.50) H D-Dimer Comment Activated Clotting Time 141 SEC (101-148) APTT (Heparin Protocol) 40 SECONDS (45-60) L Coagulation Comments Problem\Assessment\Plan Additional Plan 1. * A 59-year-old male with increasing shortness of breath, elevated troponin, decreased ejection fraction. CARDIAC CATHETERIZATION REVEALED MILD DISEASE IN THE LAD AND CIRCUMFLEX ARTERIES SEVERE DISEASE IN CHRONICALLY OCCLUDED SMALL RCA COLLATERALIZED FROM THE LEFT. RECOMMEND MEDICAL THERAPY. Continue aspirin, PLAVIX, BETA BLOCKERS AND HIGH-DOSE STATINS. 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 Recommend GDMT with metoprolol, losartan, and Farxiga or Jardiance. The patient may not be a good candidate for spironolactone because of his CKD and elevated potassium. 3. * COPD with continued smoking. Counseled on smoking cessation. * Chronic systolic heart failure, 1500 mL of fluid restriction, low-salt diet. Titrate diuretics as required. 4. * Suspected sleep apnea. Recommend sleep study. 5. * Other comorbidities, CKD. IMPROVING WITH DOBUTAMINE. . Abnormal liver function, related to probably dilated cardiomyopathy. PATIENT WILL BE GRADUALLY WEANED OFF OF DOBUTAMINE, OPTIMIZED MEDICAL THERAPY AND BE DISCHARGED. DISCHARGE PLAN DISCUSSED WITH HOSPITALIST TEAM. GABRIEL POWELL MD October 28, 2024 11:54
--- NOTE | 2024-10-28 12:08 | CARDIOLOGY REPORT ---
APPROVED REPORT EXAM: Limited 2D, Doppler, and color-flow Echocardiogram. 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 Velocity 328 cm/s RAP ESTIMATE 15 mmHg TR Peak Gr. 43 mmHg RVSP 58 mmHg LEFT VENTRICLE LV is moderately dilated with mild concentric hypertrophy. Overall systolic function is severely redu ginna with global hypokinesis. LVEF is 30%. RIGHT VENTRICLE RV appears mildly dilated with reduced contractility. RVSP is estimated at 58 mmHG. MITRAL VALVE MV is thickened with mild annular thickening. Severe mitral regurgitation with flow reversal in pulmo nary vein. TRICUSPID VALVE The tricuspid valve is normal in structure. Mild tricuspid regurgitation. PULMONIC VALVE The pulmonary valve is normal in structure. Trace pulmonic regurgitation. GREAT VESSELS IVC is dilated and collapses greater than 50% with inspiration. PERICARDIUM There is no pericardial effusion. Other Information Study Quality: Adequate Conclusion LV is moderately dilated with mild concentric hypertrophy. Overall systolic function is severely redu ginna with global hypokinesis. LVEF is 30%. RV appears mildly dilated with reduced contractility. RVSP is estimated at 58 mmHG. MV is thickened with mild annular thickening. Severe mitral regurgitation with flow reversal in pulmo nary vein. The tricuspid valve is normal in structure. Mild tricuspid regurgitation. The pulmonary valve is normal in structure. Trace pulmonic regurgitation. There is no pericardial effusion.
[2024-10-28] MEDS: hydrOXYzine 25 MG tablet PO ONE (12:25)
--- NOTE | 2024-10-28 14:03 | PROGRESS NOTE- Residence ---
Progress Note - Resident Providers to CC Resident Creating Document: DAPHNE MENDOZA, IRINA ~ Central Line/PICC still needed: No Chase-Non Protocol Chase Indications Met/Not Met: F/C Indications Not Met Antibiotic Timeout Antibiotic Ordered?: No Subjective Patient is comfortable at bedside. Denies any acute overnight events. Denies any further episodes of chest pains or shortness for breath. He is on room air currently. Explained in great detail regarding the need to abstain from methamphetamine and the cardiac catheterization report is also extensively explained to the patient. Objective Vital Signs Date Time Temp Pulse Resp B/P (MAP) Pulse Ox O2 Delivery O2 Flow Rate FiO2 10/28/24 11:00 98.1 89 27 100/68 (79) 94 Room Air 10/27/24 14:57 0 Result Diagram: 10/28/2463710/28/24637 General: Awake and Alert, no acute distress. HEENT: Conjunctiva pink, Sclera clear, Mucus Membranes moist. Resp: Unlabored. Diffuse bilateral fine crepitations heard Heart: Regular Rate and rhythm, normal S1 and S2, systolic murmur grade 2/5 present Abdomen: Obese, Soft and non tender no organomegaly Extremities: No cyanosis,clubbing or edema. Skin: Warm and Dry. Coagulation Studies Laboratory Tests Test 10/27/24 10:34 10/27/24 18:46 10/28/24 10:02 Prothrombin Time 10.8 SECONDS (9.0-12.0) INR International Normalized Ratio 1.1 INR Activated Partial Thromboplast Time 29 SECONDS (22-32) D-Dimer 1.91 MG/L FEU (0-0.50) H D-Dimer Comment Activated Clotting Time 141 SEC (101-148) APTT (Heparin Protocol) 40 SECONDS (45-60) L Coagulation Comments Assessment Assessment 59-year-old male patient with a past medical history of heart failure with reduced EF and methamphetamine abuse presents to the hospital with complaints of increasing shortness a breath. Plan Plan 1. Acute exacerbation of HFrEF: POA Methamphetamine induced cardiomyopathy Severe MR secondary to above Severe MR, EF 30%, RVSP 56 mmHg Heart catheterization one year ago ProBNP 35318 Chest x-ray reveals increased pulmonary vascular congestion, mild left-sided pleural effusion IV Lasix 40 mg b.i.d. Fluid restriction to less than 2 L per day. Strict input and output monitoring 10/28/2024: Cardiomyopathy induced mitral regurgitation Intra catheterization report reveals PCWP of 16mmHg and LVEDP of 15 mmHg. [place] [address]. Dobutamine drip started by Dr. Luque today GDM T to be continued- metoprolol 50 mg, losartan 25 mg, and Farxiga. We will start Aldactone based on his potassium tomorrow as his admission potassium was 4.9 but today's potassium 3.4 which is likely secondary to Lasix Discontinuing IV Lasix Strict I&O monitoring 2. NSTEMI: RCA occlusion EKG with abnormal findings but no ST changes Troponin 6706, continue trending Maintenance Dispatcher Dr. Luque consulted Started the patient on heparin drip for ACS Patient to be NPO. Possible heart catheterization 10/29/2024: Cardiac catheterization reveals RCA occlusion but with well- established collaterals due to which it was not stented. Additional findings reveal mild disease in the LAD and the circumflex arteries Cardiology recommends continuing aspirin and Plavix for one year and high-dose atorvastatin Heparin drip can be discontinued, bicarb drip can be discontinued. Patient currently only in the dobutamine drip at the rate of 5, we will start tapering him off of it However from catheterization report that is not enough backflow leading to pulmonary vascular congestion Outpatient follow up with his butter grader 3. Transaminitis: Resolved ALT greater than AST Differentials include secondary to heart failure/fatty liver induced We will continue monitoring 4. JERMAN on CKD stage 3: Secondary to vasomotor nephropathy Likely cardiorenal induced- improving the dobutamine D-dimer elevated to 1.19: We will order a V/Q scan but CTA will be canceled to avoid contrast Heart catheterization possibility; we will start the patient on bicarb drip and Mucomyst Close monitoring of CMP I&O monitoring 10/28/2024: Prerenal JERMAN Creatinine improved from 1.75 to 1.53 after dobutamine drip Continue monitoring 5. Mild nonspecific leukocytosis: Resolved CTA chest reveals presence of small bilateral basilar infiltrates with left- sided pleural effusion Chest x-ray at this time also reveals presence of left-sided pleural effusion that is small He was treated last time with Zithromax and Rocephin, continue to monitor at this time No significant COPD changes noted on the CT chest 6. Morbid obesity: Possible TRESA Elevated RVSP Recommend sleep study 7. Methamphetamine abuse: Endocrinology Nurse consulted Discussed in extent regarding the need to abstain from methamphetamine in view of both his cardiomyopathy as well as the NSTEMI. Patient seems to be in good understanding. Also counseled and explained to the patient regarding the need to follow up with his butter grader and possibly get a referral to higher Healthcare systems for mitral clip if his symptoms do not improve Lines: PIV Code status: Full code DVT prophylaxis: Heparin Prognosis: Guarded Diet: Heart healthy diet Daphne Mendoza PGY2, Internal medicine resident Date of Service: October 28, 2024 Billing Provider: YAMILETH SEVILLA MD Common Visit Codes: [id number] INP/OBS CARE(HIGH) DAPHNE MENDOZA, IRINA October 28, 2024 14:03 YAMILETH SEVILLA MD October 28, 2024 18:51
--- NOTE | 2024-10-28 14:14 | RADIOLOGY REPORT ---
EXAM: NM NM LUNGS HISTORY: SOB COMPARISON: None TECHNIQUE: 4.2 mCi of Tc99m MAA were utilized for the perfusion portion of the study. 38 mCi of Tc99m DTPA were utilized for the ventilation portion of the study. FINDINGS: Ventilation and perfusion images show homogeneous uptake of the radiotracer in both lungs without lar ge mismatched defect IMPRESSION: 1. Low probability for pulmonary embolism.
[2024-10-29] VITALS: BP 129/93; PULSE 97; RESP 24
[2024-10-29 02:00] VITALS: BP 144/105; PULSE 93; RESP 24; TEMP 97.8; O2SAT 97
[2024-10-29 04:00] VITALS: BP 141/78; PULSE 101; RESP 26
[2024-10-29 07:13] VITALS: BP 149/84; PULSE 101; RESP 29; TEMP 97.6; O2SAT 97
[2024-10-29 07:26] LABS: BASOPHILS # (AUTO) 0.1 X10'3 (0-0.2); BASOPHILS % (AUTO) 0.7 % (0-1); EOSINOPHILS # (AUTO) 0.2 X10'3 (0-0.9); EOSINOPHILS % (AUTO) 1.4 % (0-6); HEMATOCRIT 43.7 % (42.0-52.0); HEMOGLOBIN 14.5 g/dl (14.0-17.9); LYMPHOCYTES # (AUTO) 1.7 X10'3 (1.1-4.8); LYMPHOCYTES % (AUTO) 16.7 % (21-51); MEAN CORPUSCULAR HEMOGLOBIN 29.3 PG (27.0-31.0); MEAN CORPUSCULAR HGB CONC 33.3 g/dL (33.0-36.5); MEAN CORPUSCULAR VOLUME 88.1 FL (78-98); MEAN PLATELET VOLUME 9.5 FL (7.4-10.4); MONOCYTES # (AUTO) 0.9 X10'3 (0-0.9); NEUTROPHILS # (AUTO) 7.6 X10'3 (1.8-7.7); NEUTROPHILS % (AUTO) 72.2 % (42-75); PLATELET COUNT 204 X10'3 (140-440); RED BLOOD COUNT 4.96 X10'6 (4.70-6.10); RED CELL DISTRIBUTION WIDTH 16.3 % (11.5-14.5); WHITE BLOOD COUNT 10.5 X10'3 (4.5-11.0)
[2024-10-29 07:39] LABS: ALANINE AMINOTRANSFERASE 62 U/L (12-78); ALBUMIN 2.8 G/DL (3.4-5.0); ALBUMIN/GLOBULIN RATIO 0.8 (1.1-1.5); ALKALINE PHOSPHATASE 92 IU/L (46-116); ANION GAP 8 (8-16); ASPARTATE AMINO TRANSFERASE 25 U/L (10-37); BLOOD UREA NITROGEN 25 MG/DL (7-18); BUN/CREATININE RATIO 17.9 (10.0-20.0); CALCIUM 8.8 MG/DL (8.5-10.1); CHLORIDE 106 MMOL/L (99-107); GLUCOSE 94 MG/DL (70-104); MAGNESIUM 2.4 MG/DL (1.5-2.4); PHOSPHORUS 2.8 MG/DL (2.3-4.5); POTASSIUM 4.6 MMOL/L (3.5-5.1); SODIUM 138 MMOL/L (135-145); TOTAL PROTEIN 6.3 G/DL (6.4-8.2); eCRCL 55 ML/MIN; eGFR 52 ML/MIN
[2024-10-29 07:48] LABS: BILIRUBIN,TOTAL 0.9 MG/DL (0.1-1.0)
[2024-10-29] MEDS: losartan 25mg tablet PO SCH (07:56)
[2024-10-29] MEDS: metoprolol succinate 25mg (24-HOUR) SR. Tablet PO SCH (07:57)
[2024-10-29 08:00] VITALS: RESP 16; O2SAT 98
[2024-10-29] MEDS: DOBUTamine-DoBUTrex 500mg/D5W 250 ML IV SCH (09:04)
[2024-10-29] MEDS: amiodarone 150mg/dext, iso-os 100 ML IV ONE (09:12)
--- NOTE | 2024-10-29 09:25 | ELECTROCARDIOGRAPH REPORT ---
[facility] Test Date: 2024-10-29 Test Time: 09:22:45 Pat Name: KATIA BOYLE Department: [address] Patient ID: [id number] Room: [place] [address] A Gender: M Community Health Agent: GRIFFIN : 1965 Requested By: GABRIEL POWELL Order Number: [id number] Reading MD: Dr. OLIVER Powell Measurements Intervals [place] Rate: 85 P: 13 MA: 151 QRS: -29 QRSD: 170 T: 132 QT: 504 QTc: 600 Interpretive Statements Sinus rhythm Supraventricular bigeminy LVH with secondary repolarization abnormality Prolonged QT interval Baseline wander in lead(s) V2 Electronically Signed On 10-31-2024 15:06:[address] OLIVER Powell Please click the below link to view image of tracing.
[2024-10-29] MEDS ORDERED: ATOR20TA66 PO (10:50)
[2024-10-29] MEDS ORDERED: DAPA10TA PO (10:50)
[2024-10-29] MEDS ORDERED: CLOP-32 PO (10:50)
[2024-10-29] MEDS ORDERED: ASPI-1071 PO (10:50)
[2024-10-29 11:00] VITALS: BP 115/64; PULSE 50; RESP 16; TEMP 97.8; O2SAT 98
--- NOTE | 2024-10-29 11:04 | DISCHARGE SUMMARY-Residence ---
Discharge Summary Providers to CC Resident Creating Document: KEVINADELAAIDANIRINA SERRA ~ Discharge Summary Admission Diagnosis: Acute congestive heart failure. respiratory failure Hospital Course DATE OF ADMISSION: 10/27/2024 DATE OF DISCHARGE: 10/29/2024 Discharge Diagnosis\Comment: Acute exacerbation of heart failure with reduced ejection fraction; EF of 30% Methamphetamine induced cardiomyopathy Severe MR secondary to above CAD status post heart catheterization- non- intervenable RCA occlusion Drug abuse disorder, nicotine use disorder Mild transaminitis JERMAN secondary to vasomotor nephropathy/cardiorenal syndrome showing improvement dobutamine Morbid obesity; sleep apnea undiagnosed- possible Pickwickian syndrome as well Operations\Procedures: Heart catheterization Consultants: Cardiology- Dr. Luque Complications: None Condition on DC: Stable for transfer New Medications: Clopidogrel Bisulfate (Plavix) 75 Mg Tablet 1 TAB PO DAILY for 30 Days, #30 TAB 0 Refills Aspirin (Ecotrin*) 81 Mg Tablet.dr 1 TAB PO DAILY, #30 TAB.SR Atorvastatin Calcium (Atorvastatin Calcium) 20 Mg Tablet 80 MG PO HS, #90 TAB Dapagliflozin Propanediol (Farxiga) 10 Mg Tablet 10 MG PO DAILY, #90 TAB Continued Medications: Ipratropium/Albuterol Sulfate (Combivent Respimat Inhal [place]) 20 Mcg-100 Mcg/Actuation Aer.w.adap 2 PUFFS IH Q4H PRN for SOB or wheezing, #1 INH Losartan Potassium (Losartan Potassium) 25 Mg Tablet 1 TAB PO DAILY Metoprolol Succinate (Metoprolol Succinate) 50 Mg Tab.sr.24h 1 TAB PO DAILY Discharge Summary: This is a 59-year-old male patient who presents to the hospital with complaints of increasing shortness of breath. On further evaluation, the [place] [address] at admission, chest x-ray also revealed significant cardiomegaly and increased pulmonary vascular congestion. His troponins had progressively increased do in the initial few hours of admission. An echocardiogram at last visit was reviewed, this confirmed findings of heart failure with reduced ejection fraction at 30%, RVSP of 56 mmHg and severe MR. The patient was started IV diuresis with Lasix of 40 mg b.i.d. and fluid restriction along with strict input and output monitoring. The highest troponins during her hospitalization was 6706. Cardiology was consulted for NSTEMI and the patient underwent cardiac catheterization on 10/28/2024. On the heart catheterization, findings of increased complete non interventional RCA occlusion was noted with developed collaterals, we also found that the PCWP of 16 in the LVEDP was 15 mmHg which was within normal limits. Due to this it is understood that the patient had methamphetamine induced cardiomyopathy leading to papillary muscle dysfunction and MR. In view of this, he has NSTEMI was decided to be managed with DAPT and high-dose statin. Appropriate GDM T was continued for his methamphetamine use cardiomyopathy except for the Aldactone due to his high potassium levels. Medications included losartan, Farxiga, and metoprolol. His other admission diagnosis also included mild transaminitis at had self-resolved, JERMAN on CKD which was likely from the cardiorenal syndrome as the creatinine started to show improvement with the dobutamine drip that was started to improve diuresis. He was also found to have be morbidly obese and a possible underlying TRESA with the elevated RVSP on the echocardiogram due to which a sleep study was suggested. Toxicology screen tested positive for methamphetamine, clinical social work therapist was consulted with the patient was not available to discuss resources. The ex- and the patient were extensively counseled by both the hospitalist team as well as by the Cardiology team regarding the diet need to quit from methamphetamine use. After maintaining medical stability, the patient is discharged back home with no services. Advised at discharge: We are sending you on two new medications of aspirin and Plavix. We also increased your home dose of statin to 80 mg daily. These medications are for your blood supply to your heart, this will protect you from having a recurrent heart attack and prevent your arteries from getting clogged again. You also had methamphetamine induced cardiomyopathy that was significant with an ejection fraction of your heart at only 35%. This is also confirmed on the catheterization report. Due to this, we have to send you on other medications to improve heart function which will include Farxiga which you take once a day, losartan and metoprolol. Do not miss any of these medications including the aspirin in the Plavix. Completely abstain from methamphetamine. Repeat an echocardiogram within three months with the steep tender. This means you will have to definitely follow up with your primary care provider and your steep tender within the next 1-2 weeks. Repeat labs including a CBC and CMP with the primary care provider in 1-2 weeks and review your renal function. It is pertinent that you abstain from methamphetamine as it is affecting both your heart and your vessels and also leading to some kidney damage. As requested, we are sending you on a nicotine patch to help you quit smoking. We have given you resources to help with the drug abuse, kindly use them to prevent further worsening of clinical condition. Kindly also obtain a referral from your PCP and undergo sleep study. If you develop worsening of symptoms of shortness of breath, chest pains, dizziness or syncopal episode, develop rapid palpitations making you feel dizzy, kindly returned back to the nearest ER as soon as possible. Physical exam at discharge: General: Awake and Alert, anxious appearing HEENT: Conjunctiva pink, Sclera clear, Mucus Membranes moist. Resp: Unlabored. Diffuse bilateral fine crepitations heard Heart: Regular Rate and rhythm, normal S1 and S2, systolic murmur grade 2/5 present Abdomen: Obese, Soft and non tender no organomegaly Extremities: No cyanosis,clubbing or edema. Skin: Warm and Dry. Labs at discharge: WBC 10.5, RBC 4.9, hemoglobin 14.5, platelet 204 Sodium 138, potassium 4.6, chloride 106, bicarb 24, BUN 25, creatinine 1.4, glucose 94, albumin 2.8 Medications at discharge: Aspirin, Plavix, statin, losartan, metoprolol, Farxiga *Problems/Diagnosis: (1) HFrEF (heart failure with reduced ejection fraction) (2) NSTEMI (non-ST elevated myocardial infarction) Status: Acute Total Time Spent on D/C: > 30 Minutes Counseling Services Smoking & Tobacco Cessation: 3-10 Minutes Date of Service: October 29, 2024 Billing Provider: YAMILETH SEVILLA MD Common Visit Codes: 17972-NTG/OBS DISCH DAY >30min DAPHNE BROWN RES October 29, 2024 11:01 YAMILETH SEVILLA MD October 29, 2024 19:10
[2024-10-29] MEDS ORDERED: NICO-631 TOP (11:21)
--- NOTE | 2024-10-29 13:41 | PROGRESS NOTE ---
Progress Note Cardiology Providers to CC ~ Subjective Subjective Patient seen and examined this morning before discharge. Overall patient is doing well no chest pain or shortness of breath. Objective Result Diagram: 10/29/24 0603 10/29/24 06 Objective General: Normal body habitus, no acute distress, HEENT: Sclerae clear, PERRL, gums without lesions or bleeding, oropharynx clear without erythema or exudate. Neck: Supple without enlargement of the thyroid, or lymphadenopathy, Chest: Normal size and shape, no tenderness, nonlabored breathing, Breath sounds clear to auscultation. Heart: Regular in rate and rhythm, S1 and S2 normal, no S3-S4 or murmurs. Abdomen: Soft, nontender, no organomegaly, bowel sounds present. Extremities: No edema cyanosis or clubbing. Coagulation Studies Laboratory Tests Test 10/27/24 10:34 10/27/24 18:46 10/28/24 10:02 Prothrombin Time 10.8 SECONDS (9.0-12.0) INR International Normalized Ratio 1.1 INR Activated Partial Thromboplast Time 29 SECONDS (22-32) D-Dimer 1.91 MG/L FEU (0-0.50) H D-Dimer Comment Activated Clotting Time 141 SEC (101-148) APTT (Heparin Protocol) 40 SECONDS (45-60) L Coagulation Comments Problem\Assessment\Plan Additional Plan 1. * A 59-year-old male with increasing shortness of breath, elevated troponin, decreased ejection fraction. CARDIAC CATHETERIZATION REVEALED MILD DISEASE IN THE LAD AND CIRCUMFLEX ARTERIES SEVERE DISEASE IN CHRONICALLY OCCLUDED SMALL RCA COLLATERALIZED FROM THE LEFT. RECOMMEND MEDICAL THERAPY. Continue aspirin, PLAVIX, BETA BLOCKERS AND HIGH-DOSE STATINS. 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 Recommend GDMT with metoprolol, losartan, and Farxiga or Jardiance. The patient may not be a good candidate for spironolactone because of his CKD and elevated potassium. 3. * COPD with continued smoking. Counseled on smoking cessation. * Chronic systolic heart failure, 1500 mL of fluid restriction, low-salt diet. Titrate diuretics as required. 4. * Suspected sleep apnea. Recommend sleep study. 5. * Other comorbidities, CKD. BUN 25 creatinine 1.4 on 10/29/2024. Again patient counseled on the risk factor modification recommend follow up with PMD. . Abnormal liver function, related to probably CHANDRAMOULI,BUKKAMBUDHI V MD October 29, 2024 13:41
== END 2024-10-29 16:43 | disposition home or self-care (01) | DRG 190 ==
LOC: ER 10:24 → ED HOLD 13:24 → PCU 3S 15:33
PROVIDERS: ADMIT Internal Medicine; ATTEND Internal Medicine
PROC: 4A023N8 Measurement of Cardiac Sampling and Pressure, Bilateral, Percutaneous Approach (ICD-10-PCS; principal; 2024-10-27)
PROC: B2111ZZ Fluoroscopy of Multiple Coronary Arteries using Low Osmolar Contrast (ICD-10-PCS; 2024-10-27)
PROC: B2151ZZ Fluoroscopy of Left Heart using Low Osmolar Contrast (ICD-10-PCS; 2024-10-27)
PROC: CB121ZZ Planar Nuclear Medicine Imaging of Lungs and Bronchi using Technetium 99m (Tc-99m) (ICD-10-PCS; 2024-10-28)
DX: I21.4 Non-ST elevation (NSTEMI) myocardial infarction (principal); N17.0 Acute kidney failure with tubular necrosis; I50.23 Acute on chronic systolic (congestive) heart failure; J18.9 Pneumonia, unspecified organism; I42.7 Cardiomyopathy due to drug and external agent; I13.0 Hypertensive heart and chronic kidney disease with heart failure and stage 1 through stage 4 chronic kidney disease, or unspecified chronic kidney disease; J44.0 Chronic obstructive pulmonary disease with (acute) lower respiratory infection; E66.2 Morbid (severe) obesity with alveolar hypoventilation; Z20.822 Contact with and (suspected) exposure to COVID-19; D72.829 Elevated white blood cell count, unspecified; F15.10 Other stimulant abuse, uncomplicated; R74.01 Elevation of levels of liver transaminase levels; F17.210 Nicotine dependence, cigarettes, uncomplicated; N18.9 Chronic kidney disease, unspecified; E78.5 Hyperlipidemia, unspecified; Z88.0 Allergy status to penicillin; Z79.899 Other long term (current) drug therapy; Z68.30 Body mass index [BMI] 30.0-30.9, adult
CPT/HCPCS: 36415; 71045; 76937; 78582; 80053; 80061; 80305; 81001; 82803; 83735; 83880; 84100; 84132; 84484; 85008; 85014; 85025; 85347; 85379; 85610; 85730; 87081; 87811; 93005; 93308; 93460; 96365; 99152; 99153; 99285; A6258; A9539; A9540; C1725; C1751; C1894; G0378; J0282; J0696; J1250; J1644; J1938; J2003; J2250; J3010; J3490; J7030; Q0177; Q9967

== ENCOUNTER 2025-01-06 16:19 | Emergency (ER) | payer MEDICAID ==
[~2025-01-06] VITALS: Ht 172.7 cm; Wt 81.8 kg
[~2025-01-06 16:19] MED LIST changes: +ASPI-1071 PO; +ATOR20TA66 PO; -ATOR40TA72 PO; -CEFD300C3 PO; +CLOP-32 PO; +DAPA10TA PO; -EMPA10TA PO; -FURO40TA4 PO; -NICO-687 TD; -PRED20TA PO; -SPIR25TA5 PO
[2025-01-06 16:30] VITALS: TEMP 97.8
--- NOTE | 2025-01-06 16:38 | ELECTROCARDIOGRAPH REPORT ---
[facility] Test Date: 2025-01-06 Test Time: 16:35:10 Pat Name: KATIA BOYLE Department: EMERGENCY ROOM Room: Gender: M Newborn Photographer: СВЕТЛАНА : 1965 Requested By: KAN WOODARD Order Number: [id number] Reading MD: Dr. Yvan Pastrana Measurements Intervals [place] Rate: 93 P: 20 ID: [id number] QRS: -25 QRSD: 114 T: 159 QT: 399 QTc: 497 Interpretive Statements Sinus rhythm Ventricular bigeminy Probable left atrial enlargement Incomplete left bundle branch block Inferior infarct, old Electronically Signed On 01-06-2025 18:20:[address] Yvan Pastrana Please click the below link to view image of tracing.
--- NOTE | 2025-01-06 16:58 | RADIOLOGY REPORT ---
CHEST RADIOGRAPH Indication: CP Technique: Single frontal view of the chest was obtained Comparison: DI CHEST,SINGLE VIEW on DOS: 10/27/24, DI CHEST,SINGLE VIEW on DOS: 10/21/24 FINDINGS: Lines and Tubes: None Lungs: No focal consolidation. Pleura: No effusion. No pneumothorax. Cardiomediastinal contours: Unremarkable Bones: No acute osseous abnormality. IMPRESSION: No acute cardiopulmonary disease.
[2025-01-06 17:00] LABS: MEAN PLATELET VOLUME 9.6 FL (7.4-10.4); RED CELL DISTRIBUTION WIDTH 17.1 % (11.5-14.5)
--- NOTE | 2025-01-06 17:15 | Physician Documentation ---
History of Present Illness ~ Chief Complaint: Bradycardia Stated Complaint: HEART RATE ISSUES Time Seen by MD: 16:49 Primary Medical Doctor: DIXON BLACKWELL This 59-year-old male patient presents to the ED reporting general malaise fatigue and bradycardia. He was seen at [facility] today and it was discovered that he had a heart rate in the 30s. Denies any shortness of breath or chest pain nausea vomiting.Patient is a repair welder by trade This is symptoms have been on off for about a month. Does take metoprolol in the last dose he took was at noon today Medication Reconciliation Allergies: Coded Allergies: Penicillins (Verified Allergy, Unknown, 10/27/24) Scheduled Aspirin (Ecotrin*), 1 TAB PO DAILY Atorvastatin Calcium (Atorvastatin Calcium), 1 TAB PO DAILY, (Reported) Losartan Potassium (Losartan Potassium), 1 TAB PO DAILY, (Reported) Metoprolol Succinate (Metoprolol Succinate), 1 TAB PO DAILY, (Reported) Sacubitril/Valsartan (Entresto 24 mg-26 mg Tablet), 1 TAB PO BID, (Reported) Spironolactone (Spironolactone), 1 TAB PO DAILY, (Reported) Discontinued Medications Atorvastatin Calcium (Atorvastatin Calcium), 80 MG PO HS Discontinued Reason: Other Clopidogrel Bisulfate (Plavix), 1 TAB PO DAILY Discontinued Reason: patient no longer taking Dapagliflozin Propanediol (Farxiga), 10 MG PO DAILY Discontinued Reason: patient no longer taking Ipratropium/Albuterol Sulfate (Combivent Respimat Inhal [place]), 2 PUFFS IH Q4H PRN for SOB or wheezing Discontinued Reason: patient no longer taking Past Medical History Past Medical History: Hypertension Past Surgical History: no surgical history Drug Use: none Lives with: Spouse Lives In: Home Occupation: employed Physical Exam Vital Signs: Temperature: 97.8, Heart Rate: 73, Respiratory Rate: 18, BP: 112/70, Pulse Oximetry: 98, Weight: 81.820 Oxygen Flow Rate: 0 Progress Results/Orders Results/Orders Completed Orders - JAIRON OLIVEIRA NP Normal Saline 1000ml (0.9% Sodium Chlori (01/06/25 17:30) Medications Received in ER Medications (Trade) Dose Ordered Sig/Diya Route PRN Reason Start Time Stop Time Status Last Admin Dose Admin (0.9% sodium chloride (NS) 1000ml IV soln) 1,000 ml ONCE ONCE IVB 01/06/25 17:30 01/06/25 17:31 DC 01/06/25 17:41 1,000 ML Vital Signs 01/06/25 01/06/25 01/06/25 16:30 16:54 16:54 Temp 97.8 Pulse 38 73 Resp 17 18 18 B/P (MAP) 125/65 112/70 (84) Pulse Ox 98 98 O2 Flow Rate 0 Laboratory Tests Test 01/06/25 16:51 White Blood Count 9.6 Red Blood Count 6.15 H Hemoglobin 17.7 Hematocrit 54.0 H Mean Corpuscular Volume 87.8 Mean Corpuscular Hemoglobin 28.7 Mean Corpuscular Hemoglobin Concent 32.7 L Red Cell Distribution Width 17.1 H Platelet Count 206 Mean Platelet Volume 9.6 Neutrophils (%) (Auto) 73.2 Lymphocytes (%) (Auto) 17.3 L Monocytes (%) (Auto) 7.9 Eosinophils (%) (Auto) 0.9 Basophils (%) (Auto) 0.7 Neutrophils # (Auto) 7.0 Lymphocytes # (Auto) 1.7 Monocytes # (Auto) 0.8 Eosinophils # (Auto) 0.1 Basophils # (Auto) 0.1 CBC Comment Platelet Estimate Normal Large Platelets Few Red Blood Cell Morphology Perf Basophilic Stippling Anisocytosis 1+ Sodium Level 137 Potassium Level 5.3 H Chloride Level 105 Carbon Dioxide Level 19.3 L Anion Gap 13 Blood Urea Nitrogen 35 H Creatinine 1.59 H Estimated GFR/1.73 m2 45 BUN/Creatinine Ratio 22.0 H Glucose Level 110 H Calcium Level 9.2 Troponin I High Sensitivity 22 Pro-B-Type Natriuretic Peptide 2707 H Albumin 3.8 Chemistry Comments Medical Decision Making Findings 59-year-old male initially was concerning for bradycardia. However, the whole time he has been in his ED he has been over 60 per. He has been in a ventricular bigeminy.. Patient has a mildly elevated potassium. He also presents somewhat dehydrated. He has x-ray showed no indications of pulmonary vascular congestion or infiltrate I am going to hydrate him and discharge him for outpatient therapy. As there are no signs of cardiac events at this time Differential Dx:Considerations: Include: angina / AK, atrial dysrhythmia, atrial fibrillation, atrial flutter, MAT, PACs, PSVT, sinus tachycardia, WPW, 1st degree AV block, 2nd degree AVB-type 1, 2nd degree AVB-type 2, 3rd degree AV block, PVCs, torsades de pointes, ventricular fibrillation, ventricular tachycardia, other Departure Disposition: 01 HOME / SELF CARE / HOMELESS Impression: Primary Impression: HFrEF (heart failure with reduced ejection fraction) Additional Impression: Bigeminy Condition: Stable Additional Instructions: Follow up with your primary care for further evaluation. Her laboratory results are comparable to your previous lab results. take medication as prescribed Referrals: NO PRIMARY CARE PROVIDER (PCP) Signature Scribe Signature: f Attestation: Scribed for Jairon Oliveira Ux Consultant by Jairon Aguilar NP . 01/06/25 17:46 JAIRON OLIVEIRA NP Jan 06, 2025 17:15
[2025-01-06 17:21] LABS: CREATININE 1.59 MG/DL (0.60-1.10); PRO BRAIN NATRIURETIC PEPTIDE 2707 PG/ML (0-125); TOTAL CARBON DIOXIDE 19.3 MMOL/L (24-32); eCRCL 48 ML/MIN; eGFR 45 ML/MIN
[2025-01-06 17:25] LABS: PLATELET ESTIMATE NORMAL
[2025-01-06 17:29] LABS: LARGE PLATELETS FEW
[2025-01-06] MEDS: normal saline 1000ML IV soln IVB ONE (17:41)
[2025-01-06] MEDS ORDERED: SACU1TAB PO (17:44)
[2025-01-06] MEDS ORDERED: SPIR25TA5 PO (17:44)
[2025-01-06] MEDS ORDERED: ATOR40TA72 PO (17:44)
[2025-01-06 19:31] VITALS: BP 132/68; PULSE 68; RESP 16; O2SAT 98
== END 2025-01-06 19:35 | disposition home or self-care (01) ==
LOC: ER 16:20
DX: I11.0 Hypertensive heart disease with heart failure (principal); I50.20 Unspecified systolic (congestive) heart failure; R00.8 Other abnormalities of heart beat; Z88.0 Allergy status to penicillin; Z79.82 Long term (current) use of aspirin; Z79.899 Other long term (current) drug therapy
CPT/HCPCS: 36415; 71045; 80048; 83880; 84484; 85008; 85025; 93005; 96360; 96361; 99285; J7030

== ENCOUNTER 2025-01-17 11:28 | Inpatient (IN) | payer MEDICAID ==
[~2025-01-17] VITALS: Ht 172.7 cm; Wt 82.8 kg
[~2025-01-17 11:28] MED LIST changes: -ASPI-1071 PO; -ATOR20TA66 PO; +ATOR40TA72 PO; -CLOP-32 PO; -DAPA10TA PO; -IPRA4AER IH; +SACU1TAB PO; +SPIR25TA5 PO
--- NOTE | 2025-01-17 12:07 | ELECTROCARDIOGRAPH REPORT ---
[facility] Test Date: 2025-01-17 Test Time: 12:05:45 Pat Name: KATIA BOYLE Department: [facility]- Patient ID: [id number] Room: [place] [address] Gender: M Metallurgical Or Materials Technician: : 1965 Requested By: CHAS PATEL Order Number: [id number] Reading MD: Dr. Yvan Pastrana Measurements Intervals [place] Rate: 97 P: 65 MT: 166 QRS: 44 QRSD: 118 T: 174 QT: 365 QTc: 464 Interpretive Statements Sinus rhythm Multiple premature complexes, vent & supraven Incomplete left bundle branch block Low voltage, extremity leads Anterior Q waves, possibly due to ILBBB Electronically Signed On 01-17-2025 19:43:[address] Yvan Pastrana Please click the below link to view image of tracing.
[2025-01-17 12:32] LABS: MEAN PLATELET VOLUME 9.6 FL (7.4-10.4); RED CELL DISTRIBUTION WIDTH 17.1 % (11.5-14.5)
[2025-01-17 12:53] LABS: CREATININE 1.63 MG/DL (0.60-1.10); PRO BRAIN NATRIURETIC PEPTIDE 17008 PG/ML (0-125); TOTAL CARBON DIOXIDE 21.6 MMOL/L (24-32); eCRCL 47 ML/MIN; eGFR 44 ML/MIN
--- NOTE | 2025-01-17 13:07 | RADIOLOGY REPORT ---
CHEST RADIOGRAPH Indication: CP Technique: Single frontal view of the chest was obtained Comparison: DI CHEST,SINGLE VIEW on DOS: 01/06/25, NM NM LUNGS on DOS: 10/28/24, DI CHEST,SINGLE VIEW o n DOS: 10/27/24, CT CTA CHEST PE W/ IV CONTRAST on DOS: 10/22/24, DI CHEST,SINGLE VIEW on DOS: 10/21/24 FINDINGS: Lines and Tubes: None Lungs: No focal consolidation. Pleura: No effusion. No pneumothorax. Cardiomediastinal contours: Unremarkable Bones: No acute osseous abnormality. IMPRESSION: No acute cardiopulmonary disease.
--- NOTE | 2025-01-17 13:55 | Physician Documentation ---
History of Present Illness ~ Chief Complaint: Shortness of Breath Stated Complaint: DIFFICULTY BREATHING Time Seen by MD: 13:30 Primary Medical Doctor: [facility] Source: patient (1) HPI Patient comes in for evaluation of shortness of breath. He has a known congestive heart failure with reduced ejection fraction of 30%, has been admitted previously for both CHF and NSTEMI, most recently in October. He had a negative heart catheterization about one year ago. Patient has been intermittently noncompliant with medications, and tells me that he has been partially out of medications for a few days, and totally out of medicines since yesterday. His symptoms do feel similar to his previous CHF exacerbations. He notes shortness of breath which is much worse with lying down, shortness of breath on exertion. He denies any chest pain, cough, fever, or associated pedal edema. Medication Reconciliation Allergies: Coded Allergies: Penicillins (Verified Allergy, Unknown, 10/27/24) Scheduled Atorvastatin Calcium (Atorvastatin Calcium), 1 TAB PO DAILY, (Reported) Losartan Potassium (Losartan Potassium), 1 TAB PO DAILY, (Reported) Metoprolol Succinate (Metoprolol Succinate), 1 TAB PO DAILY, (Reported) Sacubitril/Valsartan (Entresto 24 mg-26 mg Tablet), 1 TAB PO BID, (Reported) Spironolactone (Spironolactone), 1 TAB PO DAILY, (Reported) Past Medical History Past Medical History: Congestive Heart Failure, Hypertension, Sleep Apnea Past Surgical History: no surgical history Smoking Status: Current every day smoker Drug Use: none Lives with: Spouse Lives In: Home Occupation: employed Review of Systems All Other Systems at this time: Reviewed and Negative Physical Exam Vital Signs: Temperature: 98.2, Source: Oral, Heart Rate: 101, Respiratory Rate: 16, BP: 152/99, Pulse Oximetry: 97, Weight: 86.200 Oxygen Flow Rate: 0 Physical Exam General: Pt is awake, alert, oriented x4 in mild respiratory distress and well appearing. Head: Normocephalic and atraumatic. Eyes: Conjunctiva normal. ENT: Mucous membranes moist. Neck: Supple. Chest: There is no accessory muscle use or retractions. Pt with mild rales and some expiratory wheezing. Cardiac: Regular rate and rhythm without murmurs, gallops or rubs. Palpation of the chest wall is normal. Abd: Soft, nondistended, nontender, with normoactive bowel sounds. No guarding or rebound. Extremities: Within normal limits without cyanosis, clubbing, or LE edema. Skin: [place], warm and dry with no significant rash appreciated. Neuro: Cranial nerves II-XII grossly intact. The gait is not tested. Progress Results/Orders Results/Orders Orders - CHAS PATEL MD Chest,Single View (01/17/25 12:34) Monitor (01/17/25 12:01) Saline Lock (01/17/25 12:01) Oxygen (01/17/25 12:01) Electrocardiogram (01/17/25 12:01) Page Hospitalist (01/17/25 13:56) Fill Out Med Reconciliation (01/17/25 13:56) Completed Orders - CHAS PATEL MD Chest,Single View (01/17/25 12:34) Cbc/Diff (01/17/25 12:01) BMP (01/17/25 12:01) PBNP (01/17/25 12:01) Electrocardiogram (01/17/25 12:01) Hs Troponin I W Calculations (01/17/25 12:01) Hs Troponin I W Calculations (01/17/25 14:01) Hs Troponin I W Calculations (01/17/25 15:01) Furosemide 40mg Inj (Lasix Inj) (01/17/25 13:40) Aspirin 81mg Chew Tablet (Aspirin 81mg C (01/17/25 13:40) Vital Signs 01/17/25 01/17/25 01/17/25 11:58 13:58 14:20 Temp 98.2 98.2 Pulse 101 95 Resp 16 22 17 B/P (MAP) 152/99 129/97 (108) Pulse Ox 97 98 O2 Flow Rate 0 0 Laboratory Tests Test 01/17/25 12:19 01/17/25 13:47 White Blood Count 11.2 H Red Blood Count 5.49 Hemoglobin 15.5 Hematocrit 47.7 Mean Corpuscular Volume 86.8 Mean Corpuscular Hemoglobin 28.2 Mean Corpuscular Hemoglobin Concent 32.5 L Red Cell Distribution Width 17.1 H Platelet Count 182 Mean Platelet Volume 9.6 Neutrophils (%) (Auto) 79.2 H Lymphocytes (%) (Auto) 13.3 L Monocytes (%) (Auto) 5.7 Eosinophils (%) (Auto) 0.9 Basophils (%) (Auto) 0.9 Neutrophils # (Auto) 8.9 H Lymphocytes # (Auto) 1.5 Monocytes # (Auto) 0.6 Eosinophils # (Auto) 0.1 Basophils # (Auto) 0.1 CBC Comment Prothrombin Time 10.4 INR International Normalized Ratio 1.0 Activated Partial Thromboplast Time 28 Coagulation Comments Sodium Level 140 Potassium Level 4.8 Chloride Level 107 Carbon Dioxide Level 21.6 L Anion Gap 11 Blood Urea Nitrogen 30 H Creatinine 1.63 H Estimated GFR/1.73 m2 44 BUN/Creatinine Ratio 18.4 Glucose Level 129 H Calcium Level 9.3 Troponin I High Sensitivity 175 *H 149 *H Pro-B-Type Natriuretic Peptide 83122 H Albumin 3.3 L Chemistry Comments Troponin I High Sens Percent Delta 14 Troponin I Hi Sens Absolute Change -26 EKG/XRAY/CT/US/VASC/MRI EKG : EKG Rate: 97 EKG: PVC(s), LBBB, ST elevation Consults/PCP Consults/PCP : Time Call Requested: 13:53 Consult Reason/Comments: Hospitalist Additional Comment [id number] is discussed with , who will kindly evaluate for admission. Medical Decision Making Additional Infomation Patient presenting with known CHFrEF, EF of 30%, and recently unavoidably noncompliant with his medications due to closure of his pharmacy. He is showing an increase in his proBNP, clinical findings, as well as an elevated troponin consistent with NSTEMI he has had previously. Patient denies any chest pain at this time and no evidence for STEMI on EKG. Treatment initiated in the emergency department, patient to be admitted to the hospitalist service for further evaluation and management. Departure Time of Disposition: 13:55 Admitted to Inpatient Unit: yes, to hospitalist Impression: Primary Impression: HFrEF (heart failure with reduced ejection fraction) Additional Impressions: NSTEMI (non-ST elevated myocardial infarction) Tobacco use disorder Condition: Guarded Referrals: NO PRIMARY CARE PROVIDER (PCP) Education Educated: Patient, Family Educated regarding: diagnosis, treatment Signature Scribe Signature: Attestation: CHAS PATEL MD Jan 17, 2025 13:55
[2025-01-17] MEDS ORDERED: potassium Cl 40MEQ/1/2NS 520ml 520 ML IV PRN (14:25)
[2025-01-17] MEDS ORDERED: potassium Cl 20 mEq SR tablet PO PRN (14:25)
[2025-01-17] MEDS ORDERED: bisacodyl 10mg suppository rectal RC PRN (14:25)
[2025-01-17] MEDS ORDERED: HYDROcodone/acetaminophen 5mg/325mg tablet PO PRN (14:25)
[2025-01-17] MEDS ORDERED: magnesium sulf-water 2g/50mL 50 ML IV PRN (14:25)
[2025-01-17] MEDS ORDERED: magnesium sulf-water 4G/100mL 100 ML IV PRN (14:25)
[2025-01-17] MEDS ORDERED: ondansetron/PF 4mg/2ml inj IV PRN (14:25)
[2025-01-17] MEDS ORDERED: magnesium Cl slow-release 64mg tablet PO PRN (14:25)
[2025-01-17] MEDS ORDERED: magnesium hydroxide 30ml (MOM) UD suspension PO PRN (14:25)
[2025-01-17] MEDS ORDERED: ipratropium/albuterol 3ml nebule NEB PRN (15:25)
--- NOTE | 2025-01-17 15:30 | HISTORY AND PHYSICAL-Residence ---
History & Physical Providers to CC Resident Creating Document: GRICELDA CORDERO RES ~ History of Present Illness Primary Medical Doctor: [facility] Reason for Admit\Complaint: Shortness of breath History of Present Illness This 59-year-old male with a past medical history of heart failure with reduced EF 30%-meth induced cardiomyopathy, severe mitral regurgitation, substance use disorder, morbid obesity presented to the ER with a chief complaint of worsening shortness of breath in the last one week. Stated that he even finds it difficult to go to the restroom and feels short of breath even at rest. Complains of orthopnea and occasional PND. Denies any cough, chest pain, chest pressure. Denies any fever with chills, nausea or vomiting, constipation or diarrhea or dizziness. States that he ran out of medications about a week back and since then symptoms started. He was recently admitted in October for acute exacerbation of heart failure with reduced EF. Got a cardiac catheterization done on 10/27/[address] Luque which showed EF of 30-35%, mild disease in the LAD and circumflex arteries, severe disease and chronically occluded small RCA collateralized from the left. No stenting done and recommended aspirin, Plavix, beta-blockers and high-dose statins. He was also started on other goal-directed medical therapy for HFrEF-metoprolol, losartan, farxiga. Not started on spironolactone due to risk of hyperkalemia in CKD. He was also diagnosed to have cardiorenal syndrome during his October admission and required dobutamine drip. He was again sent to the ER from his PCP-[facility] in December this year with a concern of bradycardia. But, per the ER note, he had no bradycardia in the ER and so was discharged. Stated that he used to smoke methamphetamine but quit six months back. But, his urine tox in October this year was positive for methamphetamine. Still smokes two cigarettes per day. Denied drinking alcohol Allergies: Coded Allergies: Penicillins (Verified Allergy, Unknown, 10/27/24) Home Medications Home Medications Active Reported Atorvastatin Calcium 40 Mg Tablet 1 Tab PO DAILY Spironolactone 25 Mg Tablet 1 Tab PO DAILY Entresto 24 mg-26 mg Tablet (Sacubitril/Valsartan) 24 Mg-26 Mg Tablet 1 Tab PO BID Metoprolol Succinate 50 Mg Tab.sr.24h 1 Tab PO DAILY Losartan Potassium 25 Mg Tablet 1 Tab PO DAILY Past Medical History Past Medical History Meth induced cardiomyopathy, heart failure with a reduced EF-30%, methamphetamine abuse, tobacco abuse, hypertension, obstructive sleep apnea Past Surgical History Surgical History Comment ACL repair of right knee Past Social History Social History Comment States that he smokes 2-3 cigarettes per day. Used to smoke one pack of cigarettes per day for many years and is gradually cutting down. Denies drinking alcohol. Used to smoke methamphetamine but mentioned that he quit methamphetamine about six months back. But, his urine tox in October this year was positive for meth. Denied abusing any other recreational drugs Drug Use: None Lives with: Spouse Lives In: Home Occupation: employed ROS ROS Constitutional: No fever, chills, dizziness, weakness, weight gain or loss Eyes: No pain, erythema, discharge, blurring of vision ENT: No sore throat, epistaxis, tinnitus Cardiovascular: No chest pain, chest pressure, chest discomfort, palpitations, syncope, lower extremity edema, paroxysmal nocturnal dyspnea Respiratory: Shortness of breaths present. No cough, hemoptysis Gastrointestinal: Normal appetite. No nausea, vomiting, diarrhea, constipation, hematemesis, abdominal pain, bloating, melena or fresh blood Genitourinary: No frequency, urgency, nocturia, hematuria or dysuria Musculoskeletal: No arthralgias or myalgias Integumentary: No change in skin, hair, nails. No swelling, bruising, abrasions Neurologic: No headache, neck pain, numbness or tingling of the extremities, weakness Psychiatric: No delusions, depression, loss of interest in normal activity or change in sleep pattern, hallucinations, suicidal ideations Endocrine: No fatigue, weakness, polydipsia, polyuria, change in appetite, heat or cold intolerance, sweating, dry skin Hematological: No bleeding, petechiae, bruising Allergies: No asthma or urticaria Exam Vitals: Vital Signs Date Time Temp Pulse Resp B/P (MAP) Pulse Ox O2 Delivery O2 Flow Rate FiO2 01/17/25 14:20 98.2 95 17 129/97 (108) 98 0 General: Alert and oriented x4 HEENT: Normocephalic and atraumatic. Pupils equal round reactive to light and accommodation. Extraocular movements intact. Oral and nasal mucosa moist Neck: Trachea is in midline. No masses or JVD Chest: Bilateral expiratory wheezing present. No rhonchi. Mild bilateral basal crackles present Cardiovascular: Regular rate and rhythm. S1-S2 normal. Holosystolic murmur in the mitral area. No rubs Abdomen: Soft, nontender nondistended. Bowel sounds present Extremities: No cyanosis, clubbing or edema Central Nervous System: No gross sensory or motor deficits. CN II to XII grossly intact Skin: Warm and dry Diagnostic Data Last Recorded Lab Results: 01/17/25 1219 01/17/25 1219 Advance Care Planning Advanced Care plannin - 30 Minutes Additional Plan Acute exacerbation of heart failure with reduced EF Acute exacerbation of COPD Appears tachypneic Noncompliant with medications. Continues to smoke Not requiring any oxygen supplementation. Bilateral diffuse expiratory wheezing present. Bilateral mild basal crackles present Chest x-ray shows cardiomegaly and mild pulmonary vascular congestion Received Lasix 40 mg IV once in the ER Elevated proBNP-59991 Started Lasix 40 mg IV b.i.d. Hold beta-harika for now due to acute CHF and underlying acute COPD Will start goal-directed medical therapy as tolerated Started albuterol nebulization q.4h scheduled and DuoNeb q.4h p.r.n. Echocardiogram on 10/28/2024 showed LVEF 30%, LV moderately dilated with mild concentric hypertrophy and severely reduced systolic function with global hypokinesis, RV appears mildly dilated with a reduced contractility, elevated right heart pressures-RVSP 58 mmHg, severe mitral regurgitation, mild tricuspid regurgitation Repeat echocardiogram ordered Pending UA and urine tox Coronary artery disease Cardiac catheterization done on 10/27/2024 showed mild disease in the LAD and circumflex arteries, severe disease and chronically occluded small RCA collateralized from the left. Recommended medical therapy Continue aspirin 81 mg p.o. daily, Plavix 75 mg p.o. daily and Lipitor 80 mg p.o. daily Hold beta blockers for now due to underlying acute CHF and COPD On 10/21/2024-A1c 5.9, LDL 44 Elevated troponins Likely type 2 AL from acute CHF and COPD Troponins went down from 175-149 and again went up to 155. Repeat troponin at 5:00 p.m.. Order placed Recently had cardiac catheterization in October this year EKG showed sinus rhythm, PVCs, incomplete LBBB, Q-waves in V1 to V3 Possible JERMAN on CKD Metabolic acidosis BUN 30 and creatinine 1.63 Urine lytes ordered but patient already received Lasix Continue Lasix and monitor kidney function Metabolic acidosis could be compensatory to respiratory alkalosis from tachypnea Tobacco abuse/methamphetamine abuse Consider nicotine patch if needed Pending urine tox Will consider child welfare social worker and substance use navigator consult if urine tox positive for meth DVT prophylaxis: Heparin 5000 units subcutaneous q.12h Diet: Sodium restricted diet and fluid restriction 1500 mL per day Gricelda Cordero MD Internal Medicine Resident, PGY 3 Date of Service: Jan 17, 2025 Billing Provider: YAMILETH SEVILLA MD Common Visit Codes: [id number] INP/OBS CARE (HIGH) Secondary Visit Codes: [id number] CARE PLAN 30 MINUTES GRICELDA CORDERO RES Jan 17, 2025 15:30 YAMILETH SEVILLA MD Jan 17, 2025 18:19
[2025-01-17 16:10] VITALS: BP 141/91; PULSE 88; RESP 18; TEMP 98.3; O2SAT 98
[2025-01-17 16:13] LABS: APTT 28 SECONDS (22-32); INR 1.0 INR
[2025-01-17 16:23] LABS: CREATININE 1.41 MG/DL (0.60-1.10); TOTAL CARBON DIOXIDE 20.4 MMOL/L (24-32); eCRCL 55 ML/MIN; eGFR 51 ML/MIN
[2025-01-17 16:34] LABS: PHOSPHORUS 3.1 MG/DL (2.3-4.5)
[2025-01-17 16:53] VITALS: PULSE 51; RESP 16; O2SAT 98
[2025-01-17 17:37] LABS: LEUKOCYTE ESTERASE ,URINE NEGATIVE (Neg); NITRITES, URINE NEGATIVE (Neg); OCCULT BLOOD,URINE NEGATIVE (Neg)
[2025-01-17 17:38] LABS: UA COLLECTION TYPE VOIDED
[2025-01-17 17:55] LABS: URINE AMPHETAMINE SCREEN NEGATIVE (Neg); URINE BARBITUATE SCREEN NEGATIVE (Neg); URINE BENZODIAZEPINES SCREEN NEGATIVE (Neg); URINE CANNABINOID SCREEN NEGATIVE (Neg); URINE COCAINE SCREEN NEGATIVE (Neg); URINE METHADONE SCREEN NEGATIVE (Neg); URINE OPIATE SCREEN NEGATIVE (Neg); URINE PHENCYCLIDINE SCREEN NEGATIVE (Neg)
[2025-01-17 17:59] LABS: CREATININE,URINE RANDOM 8.2 MG/DL; OSMOLALITY UA 307.0 MOSM/K (50-1400)
[2025-01-17] MEDS: albuterol 2.5 MG/3 ML nebule NEB SCH (19:38)
[2025-01-17 19:39] VITALS: PULSE 57; RESP 18; O2SAT 97
[2025-01-17 19:46] VITALS: PULSE 42; RESP 23
[2025-01-17 20:00] VITALS: RESP 18; O2SAT 97
[2025-01-17] MEDS: heparin, porcine 5000 units/ml vial SQ SCH (20:09)
[2025-01-17 22:00] VITALS: BP 123/66; PULSE 50; RESP 18; TEMP 98.6; O2SAT 97
[2025-01-18] VITALS (16 sets, daily range): BP systolic 115–144; BP diastolic 65–87; PULSE 45–94; RESP 16–24; TEMP 97.2–98.5; O2SAT 95–99
[2025-01-18 06:34] LABS: MEAN PLATELET VOLUME 9.6 FL (7.4-10.4); RED CELL DISTRIBUTION WIDTH 16.9 % (11.5-14.5)
[2025-01-18 07:02] LABS: CREATININE 1.46 MG/DL (0.60-1.10); TOTAL CARBON DIOXIDE 22.8 MMOL/L (24-32); eCRCL 53 ML/MIN; eGFR 49 ML/MIN
[2025-01-18] MEDS: aspirin 81mg, enteric-coated 1 TAB TABLET.DR PO SCH (08:17)
[2025-01-18] MEDS: potassium Cl 20 mEq SR tablet PO PRN (08:17)
[2025-01-18] MEDS: metoprolol succinate 25mg (24-HOUR) SR. Tablet PO SCH (13:41)
[2025-01-18] MEDS ORDERED: potassium Cl 40MEQ/270ML bag 270 ML IV PRN (17:00)
[2025-01-18] MEDS ORDERED: magnesium sulf-water 4G/100mL 100 ML IV PRN (17:00)
[2025-01-18] MEDS ORDERED: magnesium sulf-water 2g/50mL 50 ML IV PRN (17:00)
[2025-01-18] MEDS ORDERED: potassium Cl 20 mEq SR tablet PO PRN ×2 (17:00)
[2025-01-18] MEDS ORDERED: magnesium Cl slow-release 64mg tablet PO PRN (17:00)
[2025-01-18] MEDS ORDERED: potassium Cl 40MEQ/1/2NS 520ml 520 ML IV PRN (17:00)
--- NOTE | 2025-01-18 17:35 | PROGRESS NOTE- Residence ---
Progress Note - Resident Providers to CC Resident Creating Document: GRICELDA CORDERO RES ~ Antibiotic Timeout Antibiotic Ordered?: No Subjective Patient seen and examined today. Comfortably resting in the bed. Still has bilateral wheezing. Encouraged him not to deny breathing treatments. Telemetry showed eight runs of V-tach and multiple PACs but he remained hemodynamically stable and asymptomatic. Objective Vital Signs Date Time Temp Pulse Resp B/P (MAP) Pulse Ox O2 Delivery O2 Flow Rate FiO2 01/18/25 16:07 99 Room Air* 0 21 01/18/25 15:53 77 20 01/18/25 15:00 97.9 115/65 (82) Result Diagram: 01/18/25 0604 01/18/25 0604 General: Alert and oriented x 4 HEENT: Normocephalic and atraumatic. Pupils equal round and reactive to light and accommodation. Extraocular movements intact. Oral and nasal mucosa moist Neck: Trachea is in midline. No masses or JVD Lungs: Bilateral expiratory wheezing present. No rhonchi. Mild bilateral basal crackles present Heart: Regular rate and rhythm. S1-S2 normal. Holosystolic murmur in the mitral area. No rubs Abdomen: Soft, nontender and nondistended. Bowel sounds present HEALTHCARE REPRESENTATIVE: No gross sensory or motor abnormalities. 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 Admitted for the management of acute HFrEF and COPD Plan Plan Acute exacerbation of heart failure with reduced EF Acute exacerbation of COPD Appears tachypneic Noncompliant with medications. Continues to smoke Not requiring any oxygen supplementation. Bilateral diffuse expiratory wheezing present. Bilateral mild basal crackles present Chest x-ray shows cardiomegaly and mild pulmonary vascular congestion Received Lasix 40 mg IV once in the ER Elevated proBNP-[id number] Started Lasix 40 mg IV b.i.d. Hold beta-harika for now due to acute CHF and underlying acute COPD Will start goal-directed medical therapy as tolerated Started albuterol nebulization q.4h scheduled and DuoNeb q.4h p.r.n. Echocardiogram on 10/28/2024 showed LVEF 30%, LV moderately dilated with mild concentric hypertrophy and severely reduced systolic function with global hypokinesis, RV appears mildly dilated with a reduced contractility, elevated right heart pressures-RVSP 58 mmHg, severe mitral regurgitation, mild tricuspid regurgitation Repeat echocardiogram ordered Pending UA and urine tox 01/18/2025: Preliminary echocardiogram report shows LVEF 30-40%, dilated LV size, moderately reduced left ventricular systolic function, RV mildly dilated with mildly reduced contractility, elevated right heart pressures-RVSP 52 mmHg, left atrium is severely dilated, right atrium mildly dilated, severe mitral regurgitation, mild tricuspid regurgitation. Continue Lasix 40 mg IV b.i.d.. Continue albuterol nebulization q.4h scheduled. Strongly encouraged him to take breathing treatments. Started metoprolol succinate 50 mg p.o. daily and spironolactone 25 mg p.o. daily. Did not start ACEI/arbs or SGLT2 inhibitors due to ongoing JERMAN. Continue aspirin 81 mg p.o. daily and Plavix 70 mg p.o. daily. Requires strict I&Os. Urine tox negative Coronary artery disease Cardiac catheterization done on 10/27/2024 showed mild disease in the LAD and circumflex arteries, severe disease and chronically occluded small RCA collateralized from the left. Recommended medical therapy Continue aspirin 81 mg p.o. daily, Plavix 75 mg p.o. daily and Lipitor 80 mg p.o. daily Hold beta blockers for now due to underlying acute CHF and COPD On 10/21/2024-A1c 5.9, LDL 44 01/17/2025: Started metoprolol succinate 50 mg p.o. daily. Continue aspirin and Plavix 8 beats of V-tach and multiple PVCs Telemetry showed in beats of V-tach and multiple PVCs He remained hemodynamically stable and asymptomatic Continue home metoprolol succinate 50 mg p.o. daily Today, potassium 3.2. Received K-Dur 20 mEq in the afternoon. Recheck potassium now. Magnesium 1.9 Ordered one dose of magnesium 2 mg IV once Maintain potassium more than four and magnesium more than two Potassium and magnesium replacement protocol in place Elevated troponins Likely type 2 [place] from acute CHF and COPD Troponins went down from 175-149 and again went up to 155. Repeat troponin at 5:00 p.m.. Order placed Recently had cardiac catheterization in October this year EKG showed sinus rhythm, PVCs, incomplete LBBB, Q-waves in V1 to V3 Possible JERMAN on CKD Metabolic acidosis BUN 30 and creatinine 1.63 Urine lytes ordered but patient already received Lasix Continue Lasix and monitor kidney function Metabolic acidosis could be compensatory to respiratory alkalosis from tachypnea 01/18/2025: Bicarb improving. BUN 29 and creatinine 1.46. Likely has CKD stage IIIA. Continue diuretics. Strict I&Os Tobacco abuse/methamphetamine abuse Consider nicotine patch if needed Pending urine tox Will consider hospice social worker and substance use navigator consult if urine tox positive for meth DVT prophylaxis: Heparin 5000 units subcutaneous q.12h Diet: Sodium restricted diet and fluid restriction 1500 mL per day Disposition: Possible discharge in a.m.. Requires inhalers for COPD. Goal- directed medical therapy for HFrEF. Maintain magnesium more than two and potassium more than four Gricelda Cordero MD Internal Medicine Resident, PGY 3 Date of Service: Jan 18, 2025 Billing Provider: YAMILETH SEVILLA MD Common Visit Codes: [id number] INP/OBS CARE(HIGH) GRICELDA CORDERO RES Jan 18, 2025 17:35 YAMILETH SEVILLA MD Jan 18, 2025 19:32
--- NOTE | 2025-01-18 17:35 | CARDIOLOGY REPORT ---
APPROVED REPORT EXAM: Limited 2D, Doppler, and color-flow Echocardiogram. Patient Location: ER 1 Heart Rate: 86-114 bpm Rhythm: SINUS w/FREQUENT, OFTEN BIGEMINAL PVCs Indications CONGESTIVE HEART FAILURE ELEVATED PROBNP (17,008) HS TROPONIN (175, 149) SHORTNESS OF BREATH HX METH USE Industrial Design Intern: Formerly Frank Lr MD, referred to Ainsley Luque MD (has not had appt yet) Previous echo: 10/28/24 [facility] (EF 30%, mild TR, trace PI, severe MR w/flow reversal in pulmonary vein) 2D Dimensions IVSd 1.2 (0.7-1.1cm) LVDd 6.9 cm PWd 1.2 (0.7-1.1cm) IVSs 1.8 (0.8-1.2cm) LVDs 5.7 (2.5-4.0cm) PWs 1.0 (0.8-1.2cm) LVEF(%) 33.5 (>50%) FS (%) 16.4 % SV 81.9 ml CO 11.1 L/min M-Mode Dimensions IVSd 1.32 (0.7-1.1cm) LVDd 6.26 (4.0-5.6cm) PWd 1.26 (0.7-1.1cm) IVSs 1.65 cm LVDs 5.00 (2.0-3.8cm) FS (%) 20 % PWs 1.43 cm ESV(Teich) 118.1 ml LVEF(%) 40 (>50%) Aortic Valve AoV Peak Osmin. 128.8 cm/s AO Peak GR. 6.6 mmHg Tricuspid Valve TR P. Velocity 325 cm/s RAP ESTIMATE 10 mmHg TR Peak Gr. 42 mmHg RVSP 52 mmHg LEFT VENTRICLE Dilated LV size and moderately reduced systolic function. Mild concentric hypertrophy. There is moder ate LV systolic dysfunction present. Overall ejection fraction appears to be around 40%. RIGHT VENTRICLE RV appears mildly dilated with mildly reduced contractility. RVSP is estimated at 52 mmHg. ATRIA LA is severely dilated. RA appears at least mildly dilated. AORTIC VALVE Trileaflet AV appears mildly sclerotic without gross stenosis. Trivial insufficiency. MITRAL VALVE Mild MV annular calcification without gross stenosis. Severe regurgitation with flow reversal in pulm onary vein. TRICUSPID VALVE TV appears structurally normal with mild regurgitation. PULMONIC VALVE Normal PV without stenosis, physiologic insufficiency. PERICARDIUM Normal pericardium. No effusion. Other Information Study Quality: Adequate, but limited due to recent echo. Conclusion There is moderate LV systolic dysfunction present. Overall ejection fraction appears to be around 40%. Dilated LV size and moderately reduced systolic function. Mild concentric hypertrophy. RV appears mildly dilated with mildly reduced contractility. RVSP is estimated at 52 mmHg. Trileaflet AV appears mildly sclerotic without gross stenosis. Trivial insufficiency. Mild MV annular calcification without gross stenosis. Severe regurgitation with flow reversal in pul monary vein. TV appears structurally normal with mild regurgitation. Normal PV without stenosis, physiologic insufficiency. Normal pericardium. No effusion.
[2025-01-18] MEDS: magnesium sulf-water 2g/50mL 50 ML IV ONE (20:13)
[2025-01-19] VITALS (15 sets, daily range): BP systolic 105–160; BP diastolic 60–83; PULSE 38–114; RESP 15–25; TEMP 97.4–98.5; O2SAT 76–100
--- NOTE | 2025-01-19 05:31 | ELECTROCARDIOGRAPH REPORT ---
[facility] Test Date: 2025-01-19 Test Time: 05:30:36 Pat Name: KATIA BOYLE Department: [address] Patient ID: [facility]-[id number] Room: [place] [address] B Gender: M Certified Flex Endoscope Reprocessor: : 1965 Requested By: DESIREE VALENTINE Order Number: [id number] Reading MD: Dr. Colton Ortiz Measurements Intervals [place] Rate: 118 P: 0 [place]: 0 QRS: -18 QRSD: 121 T: 145 QT: 363 QTc: 509 Interpretive Statements Atrial flutter with predominant 3:1 AV block Left bundle branch block Electronically Signed On 01-19-2025 7:06:[address] Colton Ortiz Please click the below link to view image of tracing.
[2025-01-19] MEDS: metoprolol tartrate 1mg/ml inj IV ONE (05:46)
[2025-01-19 06:34] LABS: MEAN PLATELET VOLUME 9.8 FL (7.4-10.4); RED CELL DISTRIBUTION WIDTH 17.1 % (11.5-14.5)
[2025-01-19] MEDS: K and/or MAG REPLACEMENT MC SCH (08:00)
[2025-01-19 08:26] LABS: CREATININE 1.67 MG/DL (0.60-1.10); TOTAL CARBON DIOXIDE 28.3 MMOL/L (24-32); eCRCL 46 ML/MIN; eGFR 42 ML/MIN
[2025-01-19] MEDS: potassium Cl 20 mEq SR tablet PO STA (11:48)
--- NOTE | 2025-01-19 13:02 | ELECTROCARDIOGRAPH REPORT ---
[facility] Test Date: 2025-01-19 Test Time: 13:01:46 Pat Name: KATIA BOYLE Department: [facility] 3S [id number] Room: [place] [address] B Gender: M Fleet Manager/Dispatch: : 1965 Requested By: YAMILETH SEVILLA Order Number: [id number] Reading MD: Measurements Intervals [place] Rate: 79 P: 19 [place]: 180 QRS: -24 QRSD: 128 T: 140 QT: 423 QTc: 486 Interpretive Statements Sinus rhythm Paired ventricular premature complexes Probable left atrial enlargement Left bundle branch block Baseline wander in lead(s) V1 Please click the below link to view image of tracing.
--- NOTE | 2025-01-19 14:31 | PROGRESS NOTE- Residence ---
Progress Note - Resident Providers to CC Resident Creating Document: GRICELDA CORDERO RES ~ Antibiotic Timeout Antibiotic Ordered?: No Subjective Patient seen and examined today. Comfortably resting in the bed. Denies any new complaints. Per telemetry he was in AFib with RVR for about 2 hours 20 minutes starting at 5:30 a.m. a.m. and was converted back to sinus rhythm. Remained hemodynamically stable and asymptomatic. Objective Vital Signs Date Time Temp Pulse Resp B/P (MAP) Pulse Ox O2 Delivery O2 Flow Rate FiO2 01/19/25 11:23 40 20 110/62 (78) 98 01/19/25 11:16 Room Air* 0 21 01/19/25 11:00 98.5 Result Diagram: 01/19/25 0602 01/19/25 0602 General: Alert and oriented x 4 HEENT: Normocephalic and atraumatic. Pupils equal round and reactive to light and accommodation. Extraocular movements intact. Oral and nasal mucosa moist Neck: Trachea is in midline. No masses or JVD Lungs: Bilateral normal breath sounds. No crackles, rhonchi or wheezes Heart: Regular rate and rhythm. S1-S2 normal. Holosystolic murmur in the mitral area. No rubs Abdomen: Soft, nontender and nondistended. Bowel sounds present FRETTED INSTRUMENT MAKER HAND: No gross sensory or motor abnormalities. 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 Admitted for the management of acute HFrEF and COPD Plan Plan Acute exacerbation of heart failure with reduced EF Acute exacerbation of COPD Appears tachypneic Noncompliant with medications. Continues to smoke Not requiring any oxygen supplementation. Bilateral diffuse expiratory wheezing present. Bilateral mild basal crackles present Chest x-ray shows cardiomegaly and mild pulmonary vascular congestion Received Lasix 40 mg IV once in the ER Elevated proBNP-[id number] Started Lasix 40 mg IV b.i.d. Hold beta-harika for now due to acute CHF and underlying acute COPD Will start goal-directed medical therapy as tolerated Started albuterol nebulization q.4h scheduled and DuoNeb q.4h p.r.n. Echocardiogram on 10/28/2024 showed LVEF 30%, LV moderately dilated with mild concentric hypertrophy and severely reduced systolic function with global hypokinesis, RV appears mildly dilated with a reduced contractility, elevated right heart pressures-RVSP 58 mmHg, severe mitral regurgitation, mild tricuspid regurgitation Repeat echocardiogram ordered Pending UA and urine tox 01/18/2025: Preliminary echocardiogram report shows LVEF 30-40%, dilated LV size, moderately reduced left ventricular systolic function, RV mildly dilated with mildly reduced contractility, elevated right heart pressures-RVSP 52 mmHg, left atrium is severely dilated, right atrium mildly dilated, severe mitral regurgitation, mild tricuspid regurgitation. Continue Lasix 40 mg IV b.i.d.. Continue albuterol nebulization q.4h scheduled. Strongly encouraged him to take breathing treatments. Started metoprolol succinate 50 mg p.o. daily and spironolactone 25 mg p.o. daily. Did not start ACEI/arbs or SGLT2 inhibitors due to ongoing JERMAN. Continue aspirin 81 mg p.o. daily and Plavix 70 mg p.o. daily. Requires strict I&Os. Urine tox negative 01/19/2025: Bilateral wheezing resolved. He feels comfortable. He had paroxysmal AFib/flutter with a RVR earlier this morning and is now back in sinus rhythm. Remains hemodynamically stable. Had eight beats of V-tach run yesterday. Consulted on-call flat drier-Dr. Milton who kindly agreed to see the patient. Discontinued albuterol nebulization and started Xopenex inhaler q.8h. Will consider increasing metoprolol succinate to 100 mg p.o. daily. Awaiting Cardiology recommendations Coronary artery disease Cardiac catheterization done on 10/27/2024 showed mild disease in the LAD and circumflex arteries, severe disease and chronically occluded small RCA collateralized from the left. Recommended medical therapy Continue aspirin 81 mg p.o. daily, Plavix 75 mg p.o. daily and Lipitor 80 mg p.o. daily Hold beta blockers for now due to underlying acute CHF and COPD On 10/21/2024-A1c 5.9, LDL 44 01/17/2025: Started metoprolol succinate 50 mg p.o. daily. Continue aspirin and Plavix 01/19/2025: Continue aspirin Plavix and metoprolol succinate 50 mg p.o. daily 8 beats of V-tach and multiple PVCs Paroxysmal AFib Telemetry showed in beats of V-tach and multiple PVCs He remained hemodynamically stable and asymptomatic Continue home metoprolol succinate 50 mg p.o. daily Today, potassium 3.2. Received K-Dur 20 mEq in the afternoon. Recheck potassium now. Magnesium 1.9 Ordered one dose of magnesium 2 mg IV once Maintain potassium more than four and magnesium more than two Potassium and magnesium replacement protocol in place 01/19/2025: Had paroxysmal AFib earlier this morning. Had at beats of V-tach yesterday in his multiple PVCs. Huy Vasc score one. Does not qualify for anticoagulation. Has heart failure with reduced EF. Might need an defibrillator. Consulted cardiology. Awaiting recommendations. This morning magnesium 2.4. Potassium 3.8. Give K-Dur 20 mEq once. Maintain potassium more than four and magnesium more than two Elevated troponins Likely type 2 [place] from acute CHF and COPD Troponins went down from 175-149 and again went up to 155. Repeat troponin at 5:00 p.m.. Order placed Recently had cardiac catheterization in October this year EKG showed sinus rhythm, PVCs, incomplete LBBB, Q-waves in V1 to V3 Possible JERMAN on CKD Metabolic acidosis BUN 30 and creatinine 1.63 Urine lytes ordered but patient already received Lasix Continue Lasix and monitor kidney function Metabolic acidosis could be compensatory to respiratory alkalosis from tachypnea 01/18/2025: Bicarb improving. BUN 29 and creatinine 1.46. Likely has CKD stage IIIA. Continue diuretics. Strict I&Os 01/19/25: Creatinine went up to 1.67. Stated that he is being a lot. Records strict I&Os. Hold 2nd dose of Lasix tonight. Decreased Lasix from 40 mg IV b.i.d. to 20 mg IV daily Tobacco abuse/methamphetamine abuse Consider nicotine patch if needed Pending urine tox Will consider psychosocial rehabilitation counselor and substance use navigator consult if urine tox positive for meth DVT prophylaxis: Heparin 5000 units subcutaneous q.12h Diet: Sodium restricted diet and fluid restriction 1500 mL per day Disposition: Awaiting Cardiology recommendations from Dr Milton ( contacted by Dr Loera ) . Monitor RFTs. Request strict I&Os. Might consider increasing metoprolol dosage. Gricelda Cordero MD Internal Medicine Resident, PGY 3 Date of Service: Jan 19, 2025 Billing Provider: YAMILETH LOERA MD Common Visit Codes: [id number] INP/OBS CARE(HIGH) GRICELDA CORDERO RES Jan 19, 2025 14:31 YAMILETH LOERA MD Jan 19, 2025 18:47
[2025-01-19] MEDS: levalbuterol 0.63mg/3ml nebule IH SCH (17:16)
--- NOTE | 2025-01-19 21:21 | CONSULTATION REPORT ---
Cardiac Consultation Report Providers to CC ~ Subjective Subjective Cardiology consultation: Chronically ill 59-year-old male was hospitalized for congestive heart failure he apparently ran out of his medications a week ago could not get renewals at [facility]. He is disabled with known nonischemic cardiomyopathy from methamphetamine use and known 100% obstructed right coronary with [id number] collateralization. At the time of his heart catheterization on 10/27/[address] Loving mostly he had a RV pressure of 73/12 ventricular end-diastolic pressure of 17 pulmonary capillary wedge pressure of 16 cardiac index 1.38. Ejection fraction was approximately 30%. As an outpatient he is supposed to be taking the medications of aspirin atorvastatin losartan metoprolol succinate Entresto and spironolactone. He came to the emergency room at [facility] on 01/06/2025 for bradycardia however heart rate was 60 and he was discharged at that time. Presentation pro BNP was 2707 creatinine 1.59 potassium 5.3 with treatment he has improved and is comfortable lying flat at this time. He has had a repeat echocardiogram and there is no substantial change. Troponin mildly elevated secondary to cardiomyopathy. His electrocardiogram was reviewed and it shows atrial flutter with variable block and intraventricular conduction defect. His monitor strip is reviewed at this time and presently he is in normal sinus rhythm. It is possible that he had transient bradycardia while he is in atrial flutter and using beta harika. Objective Vitals Vital Signs Date Time Temp Pulse Resp B/P (MAP) Pulse Ox O2 Delivery O2 Flow Rate FiO2 01/19/25 18:30 82 01/19/25 15:00 97.6 18 105/60 (75) 100 Room Air 01/19/25 11:16 0 21 Lab Results: 01/19/25 0602 01/19/25 0602 Objective Neck veins flat at 45 degree heart grade 2 systolic murmur apical S3. Abdomen active bowel sounds no bruits pulses plus one in feet. No edema. Ocular motion intact no nystagmus no tremors speech fluent. Cooperative. Coagulation Studies Laboratory Tests Test 01/17/25 12:19 Prothrombin Time 10.4 SECONDS (9.0-12.0) INR International Normalized Ratio 1.0 INR Activated Partial Thromboplast Time 28 SECONDS (22-32) Coagulation Comments Problem\Assessment\Plan Additional Plan Impression: Ran out of medications could not not get refill and ended up back in heart failure. Twelve lead EKGs showed atrial flutter with nonspecific intraventricular conduction defect. Presently on monitor he appears to be in normal sinus rhythm. Recommendation: Considering that he has severe cardiomyopathy and intermittent atrial arrhythmias he would benefit from novel oral anticoagulant he is presently on aspirin. Since his creatinine is elevated he may require lowered and standard dose for Eliquis if his insurance covers he could be on Xarelto. Anticipate he should improve with reestablishment of his medical therapy. Increase activity as tolerated. BEBETO MARIE MD Jan 19, 2025 21:21
[2025-01-20 02:00] VITALS: BP 134/84; PULSE 80; RESP 26; TEMP 97.9; O2SAT 96
[2025-01-20 06:00] VITALS: BP 146/67; PULSE 77; RESP 16; TEMP 97.5; O2SAT 98
[2025-01-20 07:39] VITALS: PULSE 54; RESP 16; O2SAT 95
[2025-01-20 08:00] VITALS: RESP 16; O2SAT 98
[2025-01-20 08:17] VITALS: BP_SYST 146; PULSE 77
[2025-01-20 08:21] LABS: MEAN PLATELET VOLUME 9.9 FL (7.4-10.4); RED CELL DISTRIBUTION WIDTH 16.7 % (11.5-14.5)
[2025-01-20 08:44] LABS: CREATININE 1.44 MG/DL (0.60-1.10); TOTAL CARBON DIOXIDE 26.1 MMOL/L (24-32); eCRCL 53 ML/MIN; eGFR 50 ML/MIN
[2025-01-20] MEDS ORDERED: LEVA15HF9 INH (10:16)
[2025-01-20] MEDS ORDERED: ASPI-1071 PO (10:16)
[2025-01-20] MEDS ORDERED: FLUT1BLS4 INH (10:16)
[2025-01-20] MEDS ORDERED: EMPA10TA PO (10:16)
[2025-01-20] MEDS ORDERED: RIVA15TA PO (10:16)
[2025-01-20] MEDS ORDERED: SPIR25TA PO (10:16)
[2025-01-20] MEDS ORDERED: FURO-150 PO (10:16)
[2025-01-20] MEDS ORDERED: LISI2.5T14 PO (10:16)
[2025-01-20] MEDS ORDERED: APIX2.5T PO (12:48)
--- NOTE | 2025-01-20 14:35 | PROGRESS NOTE ---
Progress Note Cardiology Providers to CC ~ Subjective Subjective Cardiology progress note: Nonischemic cardiomyopathy known 100% right coronary with [id number] collateral. Past methamphetamine abuse. Chronic lung disease with pulmonary hypertension moderate. Severe mitral regurgitation. Patient now comfortable with resumption of his medical therapy as he had run out of medications. Objective Result Diagram: 01/20/25 0646 01/20/25 0646 Objective No rales no wheeze. Peripheral edema nearly completely resolved. We will sinus rhythm persists he did had paroxysmal flutter fibrillation. Coagulation Studies Laboratory Tests Test 01/17/25 12:19 Prothrombin Time 10.4 SECONDS (9.0-12.0) INR International Normalized Ratio 1.0 INR Activated Partial Thromboplast Time 28 SECONDS (22-32) Coagulation Comments Problem\Assessment\Plan Additional Plan Assessment stable improved. Generally speaking should be on novel oral anticoagulants if his insurance can not afford it instead of aspirin Plavix combination. Recommendation T2 supportive care discharge at your convenience. BEBETO MARIE MD Jan 20, 2025 14:35
--- NOTE | 2025-01-20 19:20 | DISCHARGE SUMMARY-Residence ---
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 Stated that he even finds it difficult to go to the restroom and feels short of breath even at rest. Complains of orthopnea and occasional PND. Denies any cough, chest pain, chest pressure. Denies any fever with chills, nausea or vomiting, constipation or diarrhea or dizziness. States that he ran out of medications about a week back and since then symptoms started. He was recently admitted in October for acute exacerbation of heart failure with reduced EF. Got a cardiac catheterization done on 10/27/[address] Luque which showed EF of 30-35%, mild disease in the LAD and circumflex arteries, severe disease and chronically occluded small RCA collateralized from the left. No stenting done and recommended aspirin, Plavix, beta-blockers and high-dose statins. He was also started on other goal-directed medical therapy for HFrEF-metoprolol, losartan, farxiga. Not started on spironolactone due to risk of hyperkalemia in CKD. He was also diagnosed to have cardiorenal syndrome during his October admission and required dobutamine drip. He was again sent to the ER from his PCP-[facility] in December this year with a concern of bradycardia. But, per the ER note, he had no bradycardia in the ER and so was discharged. Stated that he used to smoke methamphetamine but quit six months back. But, his urine tox in October this year was positive for methamphetamine. Still smokes two cigarettes per day. Denied drinking alcohol During the hospital stay, he was treated for acute heart failure with a reduced EF and acute exacerbation of COPD. He received Lasix 40 mg IV twice a day and had good urine output. Later, Lasix was decreased to 20 mg IV daily. He was gradually started on goal-directed medical therapy-metoprolol and spironolactone. He was not started on ACEI/arbs and Jardiance as he had underlying JERMAN. But, was discharged on PAVAN/arbs and Jardiance as well as creatinine improved. He initially denied breathing treatments but later agreed to receive at upon counseling and educating him about the requirement of breathing treatments for his COPD. He was strongly educated not to smoked tobacco, abuse meth. He had multiple PVCs, eight beats of V-tach and also paroxysmal AFib. Considering the risk of arrhythmias with underlying reduced EF, on-call costumer-Dr. Milton was consulted. He recommended that the patient would benefit with oral anticoagulant instead of aspirin and Plavix. His echocardiogram also showed severely dilated left atrium. So, was started on low-dose Xarelto two days creatinine level was recommended with the costumer. He has JERMAN likely secondary to renal tubular stasis from acute CHF improved as well. Today, he is stable for discharge back to home. General: Alert and oriented x 4 HEENT: Normocephalic and atraumatic. Pupils equal round and reactive to light and accommodation. Extraocular movements intact. Oral and nasal mucosa moist Neck: Trachea is in midline. No masses or JVD Lungs: Bilateral normal breath sounds. No crackles, rhonchi or wheezes Heart: Regular rate and rhythm. S1-S2 normal. Holosystolic murmur in the mitral area. No rubs Abdomen: Soft, nontender and nondistended. Bowel sounds present SPECIAL EDUCATION PROFESSIONAL: No gross sensory or motor abnormalities. CN II to XII grossly intact Extremities: No cyanosis, clubbing or edema Skin: Warm and dry Discharge instructions: Please take metoprolol succinate 50 mg daily, lisinopril 2.5 mg once daily, Jard iance 10 mg once daily, spironolactone 12.5 mg once daily and Lasix 40 mg once daily. Check your potassium level within 2-3 days and also after a week after discharge. Please follow up with the PCP within one week after discharge. You are started on eliquis 2.5 mg twice a day in addition to aspirin 81 mg once daily due to coronary artery disease and paroxysmal AFib as per costumer recommendations. Use Trelegy daily for COPD and use Xopenex as needed for acute shortness of breath. Monitor for any bleeding with Xarelto-blood in urine blood in stool or significant skin bruises. Stop Xarelto if there is any significant bleeding and discuss with your PCP immediately. Follow up with the costumer within 1-2 weeks after discharge. Strongly recommend to quit tobacco abuse. Recommend to get a referral to a workers compensation claims assistant. 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 Milton-costumer Complications: None Condition on DC: Stable New Medications: Apixaban (Eliquis) 2.5 Mg Tablet 1 TAB PO Q12H for 30 Days, #60 TAB 0 Refills Empagliflozin (Jardiance) 10 Mg Tablet 1 TAB PO DAILY for 30 Days, #30 TAB 0 Refills Fluticasone/Umeclidin/Vilanter (Trelegy Ellipta 100-62.5-25) 100-62.5 Blst.w.dev 1 PUFFS INH DAILY for 30 Days, #1 EA 0 Refills Furosemide (Lasix) 20 Mg Tablet 40 MG PO DAILY for 30 Days, #30 TAB Levalbuterol Tartrate (Xopenex Hfa) 45 Mcg/Actuation Hfa.aer.ad 2 PUFFS INH Q4HPRN PRN for wheezing, #15 GM 0 Refills Lisinopril (Lisinopril) 2.5 Mg Tablet 1 TAB PO DAILY for 30 Days, #30 TAB 0 Refills Aspirin (Ecotrin*) 81 Mg Tablet.dr 1 TAB PO DAILY for 30 Days, #30 TAB.SR Spironolactone (Aldactone) 25 Mg Tablet 12.5 MG PO DAILY for 30 Days, #15 TAB Continued Medications: Atorvastatin Calcium (Atorvastatin Calcium) 40 Mg Tablet 1 TAB PO DAILY Metoprolol Succinate (Metoprolol Succinate) 50 Mg Tab.sr.24h 1 TAB PO DAILY Discontinued Medications: Losartan Potassium (Losartan Potassium) 25 Mg Tablet 1 TAB PO DAILY Sacubitril/Valsartan (Entresto 24 mg-26 mg Tablet) 24 Mg-26 Mg Tablet 1 TAB PO BID Spironolactone (Spironolactone) 25 Mg Tablet 1 TAB PO DAILY Discharge Summary: As above *Problems/Diagnosis: (1) CHF exacerbation Status: Acute (2) COPD exacerbation Total Time Spent on D/C: > 30 Minutes Date of Service: Jan 20, 2025 Billing Provider: YAMILETH SEVILLA MD Common Visit Codes: 60131-IOC/OBS DISCH DAY >30min GILGRICELDA RES Jan 20, 2025 19:14 YAMILETH SEVILLA MD Jan 20, 2025 19:43
== END 2025-01-20 13:30 | disposition home or self-care (01) | DRG 194 ==
LOC: ER 11:28 → ED HOLD 14:29 → PCU 3S 16:00
PROVIDERS: ADMIT Internal Medicine; ATTEND Internal Medicine
DX: I13.0 Hypertensive heart and chronic kidney disease with heart failure and stage 1 through stage 4 chronic kidney disease, or unspecified chronic kidney disease (principal); I21.A1 Myocardial infarction type 2; I42.8 Other cardiomyopathies; I48.92 Unspecified atrial flutter; I50.23 Acute on chronic systolic (congestive) heart failure; J44.1 Chronic obstructive pulmonary disease with (acute) exacerbation; F17.200 Nicotine dependence, unspecified, uncomplicated; F15.10 Other stimulant abuse, uncomplicated; I45.9 Conduction disorder, unspecified; I25.10 Atherosclerotic heart disease of native coronary artery without angina pectoris; N18.9 Chronic kidney disease, unspecified; G47.30 Sleep apnea, unspecified; I47.20 Ventricular tachycardia, unspecified; I49.3 Ventricular premature depolarization; I48.0 Paroxysmal atrial fibrillation; Z79.899 Other long term (current) drug therapy; Z88.0 Allergy status to penicillin
CPT/HCPCS: 36415; 71045; 80048; 80053; 80305; 81003; 82570; 83605; 83735; 83880; 83935; 84100; 84132; 84133; 84300; 84484; 85025; 85610; 85730; 87081; 87207; 93005; 93308; 94640; 94760; 97116; 97161; 97530; 99285; G0378; J1644; J1938; J3490; J7030; J7614

== ENCOUNTER 2025-02-08 09:14 | Emergency (ER) | payer MEDICAID ==
[~2025-02-08] VITALS: Ht 167.6 cm; Wt 83.5 kg
[~2025-02-08 09:14] MED LIST changes: +APIX2.5T PO; +ASPI-1071 PO; +EMPA10TA PO; +FLUT1BLS4 INH; +FURO-150 PO; +LEVA15HF9 INH; +LISI2.5T14 PO; -LOSA25TA41 PO; -SACU1TAB PO; +SPIR25TA PO; -SPIR25TA5 PO
[2025-02-08 09:22] VITALS: TEMP 98.2
--- NOTE | 2025-02-08 09:33 | ELECTROCARDIOGRAPH REPORT ---
[facility] Test Date: 2025-02-08 Test Time: 09:20:00 Pat Name: KATIA BOYLE Department: EMERGENCY ROOM Room: Gender: M Net Software Engineer: PM : 1965 Requested By: KARMA BAUER Order Number: [id number] Reading MD: Measurements Intervals [place] Rate: 95 P: -16 VT: 167 QRS: -49 QRSD: 114 T: 109 QT: 373 QTc: 469 Interpretive Statements Sinus arrhythmia Paired ventricular premature complexes Borderline IVCD with LAD Inferior infarct, old Lateral leads are also involved Please click the below link to view image of tracing.
[2025-02-08 10:00] LABS: MEAN PLATELET VOLUME 10.0 FL (7.4-10.4); RED CELL DISTRIBUTION WIDTH 16.6 % (11.5-14.5)
--- NOTE | 2025-02-08 10:00 | RADIOLOGY REPORT ---
EXAM: DI CHEST,SINGLE VIEW Indication: CP Technique: Single frontal view of the chest was obtained Comparison: DI CHEST,SINGLE VIEW on DOS: 01/17/25, DI CHEST,SINGLE VIEW on DOS: 01/06/25, DI CHEST,SINGL E VIEW on DOS: 10/27/24, CT CTA CHEST PE W/ IV CONTRAST on DOS: 10/22/24, DI CHEST,SINGLE VIEW on DOS: FINDINGS: Lines and Tubes: None Lungs: No focal consolidation. Pleura: No effusion. No pneumothorax. Cardiomediastinal contours: Unremarkable Bones: No acute osseous abnormality. IMPRESSION: No acute cardiopulmonary disease.
[2025-02-08 10:16] LABS: CREATININE 1.36 MG/DL (0.60-1.10); PRO BRAIN NATRIURETIC PEPTIDE 4328 PG/ML (0-125); TOTAL CARBON DIOXIDE 24.5 MMOL/L (24-32); eCRCL 53 ML/MIN; eGFR 54 ML/MIN
--- NOTE | 2025-02-08 10:41 | Physician Documentation ---
History of Present Illness ~ Chief Complaint: Chest Pain Stated Complaint: SOB Time Seen by MD: 10:24 Primary Medical Doctor: [facility] Source: patient Mode of Arrival: POV Exam Limitations: no limitations HPI Chief Complaint: Shortness a breath Caveat: None Independent Historians: History of Present Illness: Patient is a 59-year-old man with known congestive heart failure comes in complaining of shortness a breath that began last night. Patient states that he had a recent hospitalization two weeks ago and ran out of his meds one week ago. He has not been able to get them refilled. Patient is denying chest pain. Patient complains of shortness a breath with exertion and shortness a breath when lying flat. Patient denies any fever or cough. Review of systems: All systems were reviewed and are negative except for what is indicated in the history of present illness. Past Medical History: Congestive heart failure. EF 30%-meth induced cardiomyopathy, CAD, HTN, type 2 diabetes, COPD Past Surgical History: Noncontributory Social History: Meth use, tobacco use Medications: Reviewed as documented Nursing Notes Allergies: Reviewed as documented in Nursing Notes Medication Reconciliation Allergies: Coded Allergies: Penicillins (Verified Allergy, Unknown, 02/08/25) Scheduled Apixaban (Eliquis), 1 TAB PO Q12H Aspirin (Ecotrin*), 1 TAB PO DAILY Atorvastatin Calcium (Atorvastatin Calcium), 1 TAB PO DAILY, (Reported) Empagliflozin (Jardiance), 1 TAB PO DAILY Fluticasone/Umeclidin/Vilanter (Trelegy Ellipta 100-62.5-25), 1 PUFFS INH DAILY Furosemide (Lasix), 40 MG PO DAILY Lisinopril (Lisinopril), 1 TAB PO DAILY Metoprolol Succinate (Metoprolol Succinate), 1 TAB PO DAILY, (Reported) Spironolactone (Aldactone), 12.5 MG PO DAILY Scheduled PRN Levalbuterol Tartrate (Xopenex Hfa), 2 PUFFS INH Q4HPRN PRN for wheezing Past Medical History Past Medical History: Congestive Heart Failure, Hypertension, Sleep Apnea Past Surgical History: no surgical history Drug Use: none Lives with: Spouse Lives In: Home Occupation: employed Review of Systems All Other Systems at this time: Reviewed and Negative ROS Patient denies any other acute symptoms other than above. All other systems are negative Physical Exam Vital Signs: RN Vital Signs have been reviewed: Yes, Temperature: 98.2, Source: Oral, Heart Rate: 77, Respiratory Rate: 22, BP: 130/82, Pulse Oximetry: 99, Weight: 83.500 Oxygen Flow Rate: 0 Pulse Oximetry Reflects: adequate oxygenation Physical Exam General Appearance: Mild distress HEENT: Normal OP, moist oral mucosa, PERRL, EOMI Neck: supple, normal ROM, trachea midline Pulmonary: No respiratory distress, CTA, BS equal Cardiac: RRR, no murmur, rub or gallop, GI: nondistended, soft, nontender, normal bowel sounds, no guarding, no rebound Extremities: normal ROM, no swelling, non-tender Skin: intact, dry, warm, no rashes Neuro: AAOx3, speech is clear, no focal motor weakness Psych: normal affect, good eye contact, no apparent hallucination, normal speech Progress Results/Orders Results/Orders Completed Orders - KAN WOODARD MD Metoprolol Succinate Er Tablet (Toprol X (02/08/25 10:41) Furosemide Tablet (Lasix Tablet) (02/08/25 10:45) Lisinopril Tablet (Zestril Tablet) (02/08/25 10:45) Medications Received in ER Medications (Trade) Dose Ordered Sig/Diya Route PRN Reason Start Time Stop Time Status Last Admin Dose Admin (Toprol XL (24-hour) tablet) 50 mg NOW STAT PO 02/08/25 10:41 02/08/25 10:43 DC 02/08/25 10:57 50 MG (Lasix tablet) 40 mg ONCE ONCE PO 02/08/25 10:45 02/08/25 10:46 DC 02/08/25 10:57 40 MG (Zestril tablet) 2.5 mg ONCE ONCE PO 02/08/25 10:45 02/08/25 10:46 DC 02/08/25 10:58 2.5 MG Vital Signs 02/08/25 02/08/25 02/08/25 02/08/25 09:22 09:56 09:59 10:58 Temp 98.2 Pulse 45 77 74 Resp 18 21 22 B/P (MAP) 138/90 130/82 (98) Pulse Ox 99 99 O2 Flow Rate 0 Laboratory Tests Test 8/25/25 09:20 White Blood Count 9.3 Red Blood Count 5.63 Hemoglobin 16.2 Hematocrit 49.2 Mean Corpuscular Volume 87.3 Mean Corpuscular Hemoglobin 28.7 Mean Corpuscular Hemoglobin Concent 32.9 L Red Cell Distribution Width 16.6 H Platelet Count 167 Mean Platelet Volume 10.0 Neutrophils (%) (Auto) 66.0 Lymphocytes (%) (Auto) 24.0 Monocytes (%) (Auto) 7.4 Eosinophils (%) (Auto) 1.7 Basophils (%) (Auto) 0.9 Neutrophils # (Auto) 6.1 Lymphocytes # (Auto) 2.2 Monocytes # (Auto) 0.7 Eosinophils # (Auto) 0.2 Basophils # (Auto) 0.1 CBC Comment Platelet Estimate Normal Large Platelets Few Giant Platelets Few Red Blood Cell Morphology Perf Basophilic Stippling Anisocytosis 1+ [place] Cells Elliptocytes Sodium Level 141 Potassium Level 4.4 Chloride Level 108 H Carbon Dioxide Level 24.5 Anion Gap 9 Blood Urea Nitrogen 24 H Creatinine 1.36 H Estimated GFR/1.73 m2 54 BUN/Creatinine Ratio 17.6 Glucose Level 101 Calcium Level 9.2 Troponin I High Sensitivity 37 Pro-B-Type Natriuretic Peptide 4328 H Albumin 3.7 Chemistry Comments Medical Decision Making Additional info obtained from: old records Findings Differential diagnosis includes but is not limited to: Congestive heart failure exacerbation, medical noncompliance, pleural effusion, pneumonia, COPD exacerbation EKG independent interpretation: Performed at 9:20 a.m.. Sinus arrhythmia, heart rate 95, left axis deviation, IVCD, PVCs Chest x-ray, single view, indication: Shortness a breath Independent interpretation: Lungs are clear, normal mediastinum, normal cardiac silhouette, no acute cardiopulmonary process. Laboratory data independent interpretation: CBC: Unremarkable BMP: BUN and creatinine are elevated at 24 and 1.36 respectively, this is his baseline. Pro BNP: 4328 Troponin: 37 Emergency department course/medical decision-making: Patient presents with symptoms consistent with congestive heart failure. Patient has not been on his medications. Patient's pulse ox is normal. Patient does not require oxygen. Patient will be restarted on his metoprolol, Lasix and lisinopril. Patient's blood pressure is too high for his ejection fraction of 30-35%. However the patient does not require admission. We will restart his medications. Patient is stable for discharge. Consultation/communications: Departure Time of Disposition: 11:34 Disposition: 01 HOME / SELF CARE / HOMELESS Impression: Primary Impression: Congestive heart failure Qualified Codes: I50.23 - Acute on chronic systolic (congestive) heart failure Condition: Improved Discharge Instructions: Heart Failure, Diagnosis, [id number] Additional Instructions: TRY TO GET YOUR MEDICATIONS TODAY FROM THE PHARMACY. Prescriptions Potassium Chloride (Klor-Con) 20 Meq Packet 1 PKT PO DAILY for 30 Days, #30 PKT 0 Refills Prov: KAN WOODARD MD 02/08/25 Furosemide* (Lasix*) 20 Mg Tablet 2 TAB PO DAILY for 30 Days, #60 TAB Prov: KAN WOODARD MD 02/08/25 Metoprolol Succinate* (Toprol Xl*) 50 Mg Tab.sr.24h 1 TAB PO DAILY for 30 Days, #30 TAB Prov: KAN WOODARD MD 02/08/25 Education Educated: Patient, Family Educated regarding: diagnosis, treatment, need for follow up Signature Scribe Signature: . Attestation: . KAN WOODARD MD Feb 08, 2025 10:41
[2025-02-08 10:43] LABS: GIANT PLATELET FEW; LARGE PLATELETS FEW; PLATELET ESTIMATE NORMAL
[2025-02-08] MEDS: metoprolol succinate 25mg (24-HOUR) SR. Tablet PO STA (10:57)
[2025-02-08] MEDS ORDERED: FURO-150 PO (11:42)
[2025-02-08] MEDS ORDERED: POTA20PA40 PO (11:42)
[2025-02-08] MEDS ORDERED: METO50TA7 PO (11:42)
[2025-02-08 12:03] VITALS: BP 121/85; PULSE 81; RESP 17; O2SAT 95
== END 2025-02-08 12:04 | disposition home or self-care (01) ==
LOC: ER 09:14
DX: I11.0 Hypertensive heart disease with heart failure (principal); I50.9 Heart failure, unspecified; G47.30 Sleep apnea, unspecified; E11.9 Type 2 diabetes mellitus without complications; J44.9 Chronic obstructive pulmonary disease, unspecified; I25.10 Atherosclerotic heart disease of native coronary artery without angina pectoris; Z88.0 Allergy status to penicillin; Z79.82 Long term (current) use of aspirin; Z79.899 Other long term (current) drug therapy
CPT/HCPCS: 36415; 71045; 80048; 83880; 84484; 85008; 85025; 93005; 99285

== ENCOUNTER 2025-03-11 14:24 | Outpatient (CLI) | payer MEDICAID ==
[~2025-03-11 14:24] MED LIST changes: +METO50TA7 PO; +POTA20PA40 PO
[2025-03-11 15:18] VITALS: PULSE 73; RESP 16; O2SAT 99
--- NOTE | 2025-03-12 15:44 | PROCEDURE NOTE - Respiratory ---
Procedure Note-Respiratory Providers to CC Copies To 1: FELICIANO LINARES Procedure Name: This is a spirometry study dated March 11, 2025. Spirometry measurements: There is significant reduction in both the forced vital capacity and the FEV1 measurements. The FEV1 ratio is normal. All of the flow rate measurements show some reduction. Bronchodilator was not administered as part of the study. Overall conclusion: This study is abnormal. There is evidence for obstructive ventilatory defect in the moderate category. These findings are consistent with the patient's diagnosis of COPD. There may also be a restrictive ventilatory defect as well based on the reduction in the forced vital capacity. It is recommended that the patient abstain from cigarette smoking. Bronchodilator therapy should be continued for this patient. We have no previous studies for comparison. JOE SMITH MD Mar 12, 2025 15:44
== END 2025-03-11 23:59 | disposition home or self-care (01) ==
LOC: RT 14:24
PROVIDERS: ATTEND Nurse Practitioner Family
DX: J44.9 Chronic obstructive pulmonary disease, unspecified (principal)
CPT/HCPCS: 94010; 94760